=== PATIENT | female | born 1975 | race Caucasian/White ===

== ENCOUNTER 2016-10-04 20:51 | Emergency (ER) | payer SELFPAY ==
[~2016-10-04] VITALS: Ht 165.1 cm; Wt 54.4 kg
[~2016-10-04 20:51] MED LIST: ALBU8.5HRX INH; ALPR1TAB2 PO; CLIN-81 PO; CYCL10TA9 PO; EST1.25T PO; FLT11013 INH; HYDR-2890 PO; OXYC1TAB12 PO; QTP100T PO; TOPI50TA2 PO
--- OUTSIDE RECORDS SUMMARY | 2016-10-04 21:01 | XMS REPORT ---
Author Author Tori Staley Organization [facility] Address [address] [place], [place] [id number] Care Team Providers Care Proposal Consultant Name Role Phone Tori Staley PCP Unavailable Tori Staley PreferredProvider Unavailable Allergies and Adverse Reactions Name Reaction Notes PENICILLINS SULFA (SULFONAMIDES) Bactrim DS Plan of Treatment Planned Activity Comments Planned Date Planned Time Plan/Goal MONA PREP. 08/01/2016 12:00 AM MONA PREP. 08/01/2016 12:00 AM CHLAMYDIA TRACHOMATIS AMP PROBE 08/01/2016 12:00 AM NEISSERIA GONORRHOEAE AMP PROBE 08/01/2016 12:00 AM CBC With Auto Differential 08/17/2016 12:00 AM CMP (comprehensive metabolic panel) 08/17/2016 12:00 AM .Lipid Panel 08/17/2016 12:00 AM CRP 08/17/2016 12:00 AM TSH 08/17/2016 12:00 AM HEPATITIS C QUANT RNA PCR 08/17/2016 12:00 AM LIPASE. 08/17/2016 12:00 AM Yeast culture genital 08/21/2016 12:00 AM Bacterial vaginosis panel (Gardnerella vaginalis, Atopobium vaginae, BV associated Bacteria 2 08/21/2016 12:00 AM Breast ultrasound 09/12/2016 12:00 AM Rib Series, Unilateral 08/27/2012 12:00 AM CBC with Diff, automated 09/23/2013 12:00 AM CMP 09/23/2013 12:00 AM Hepatitis acute panel 09/23/2013 12:[address] of abdomen (with and without contrast) 09/23/2013 12:00 AM Thyroid stimulating hormone (TSH) 03/04/2014 12:00 AM Drug screen ur 03/05/2014 12:00 AM Drug screen ur 03/05/2014 12:00 AM Medications Active Name Start Date Estimated Completion Date SIG Comments amitriptyline 25 mg oral tablet 01/15/2013 take 1 tablet (25 mg) by oral route once daily at bedtime Seroquel oral levothyroxine 50 mcg oral tablet 12/19/2013 take 1 tablet (50 mcg) by oral route once daily Flovent HFA 110 mcg/actuation inhalation HFA aerosol inhaler 04/06/2014 INHALE ONE PUFF BY MOUTH TWICE DAILY Klonopin oral Diflucan 150 mg oral tablet 08/28/2016 take 1 tablet (150 mg) by oral route once ProAir HFA 90 mcg/actuation inhalation HFA aerosol inhaler 09/01/2016 inhale 1 puff (90 mcg) by inhalation route every 6 hours as needed Name Start Date Expiration Date SIG Comments Ultram ER 200 mg oral tablet extended release 24 hr 09/05/2010 09/26/2010 take 1 tablet (200 mg) by oral route once daily for 21 days Prozac PO 20 mg 10/31/2010 02/28/2011 3 tab PO qd erythromycin 250 mg oral tablet 11/04/2010 11/11/2010 take 1 tablet (250 mg) by oral route 2 times per day for 7 days etodolac 400 mg oral tablet 11/07/2010 12/07/2010 take 1 tablet (400 mg) by oral route every 8 hours as needed for 30 days Levaquin 500 mg oral tablet 11/09/2010 11/19/2010 take 1 tablet (500 mg) by oral route once daily for 10 days prednisone 50 mg oral tablet 11/09/2010 11/19/2010 One tablet every day for 10 days. levothyroxine 100 mcg oral tablet 01/09/2011 01/04/2012 take 1 tablet (100 mcg) by oral route once daily for 30 days azithromycin 500 mg oral tablet 02/14/2011 02/20/2011 take 1 tablet (500 mg) by oral route once daily for 6 days Zithromax Z-Zack 250 mg oral tablet 06/22/2011 06/27/2011 take 2 tablets (500 mg) by oral route once daily for 1 day then 1 tablet (250 mg) by oral route once daily for 4 days Keflex 500 mg oral capsule 06/28/2011 07/05/2011 take 1 capsule (500 mg) by oral route every 12 hours for 7 days hydrocodone-acetaminophen 10-325 mg oral tablet 07/18/2011 07/25/2011 take 1 tablet by oral route every 6 hours as needed for pain alprazolam 0.5 mg oral tablet 08/14/2011 08/22/2011 TAKE ONE TABLET BY MOUTH EVERY 4 TO 8 HOURS NEEDED FOR ANXIETY Flexeril 10 mg oral tablet 08/21/2011 10/20/2011 take 1 tablet (10 mg) by oral route 3 times per day for 30 days Imodium A-D 2 mg oral tablet 12/01/2011 12/04/2011 take 2 tablets (4 mg) by oral route after 1st loose stool and 1 tablet (2 mg) after each next bowel movement; do not exceed 16 mg in 24hrs for 3 days promethazine 25 mg oral tablet 12/01/2011 12/04/2011 take 1 tablet by oral route 3 times a day as needed for 3 days Zithromax Z-Zack 250 mg oral tablet 12/04/2011 12/09/2011 take 2 tablets ( 500 mg) by oral route once daily for 1 day then 1 tablet (250 mg) by oral route once daily for 4 days lactulose 10 gram/15 mL (15 mL) oral solution 03/25/2012 03/30/2012 take 30 milliliters (20 gram) by oral route once daily for 5 days amoxicillin 500 mg oral capsule 12/19/2012 12/26/2012 2 capsules BID for 7 days Ventolin HFA 90 mcg/actuation inhalation HFA aerosol inhaler 12/25/20122013 INHALE ONE PUFF EVERY 6 HOURS NEEDED Flovent HFA 110 mcg/actuation inhalation HFA aerosol inhaler 12/25/20122013 inhale 1 puff (110 mcg) by inhalation route 2 times per day for 30 days Zithromax Z-Zack 250 mg oral tablet 01/29/2013 02/03/2013 take 2 tablets ( 500 mg) by oral route once daily for 1 day then 1 tablet (250 mg) by oral route once daily for 4 days tizanidine 2 mg oral capsule 09/04/2013 11/03/2013 take 1 capsule by oral route every 8 hours as needed for 30 days for muscle spasm Premarin 1.25 mg oral tablet 11/10/2013 11/05/2014 take 1 tablet (1.25 mg) by oral route once daily for 30 days Topamax 100 mg oral tablet 12/11/2013 12/06/2014 take 1 tablet (100 mg) by oral route 2 times per day for 30 days ondansetron 8 mg oral tablet,disintegrating 12/11/2013 06/25/2014 dissolve 1 tablet by oral route q 6 hour prn n/v Prozac 40 mg oral capsule 02/17/2014 08/16/2014 take 1 capsule (40 mg) by oral route once daily in the morning for 30 days Flagyl 500 mg oral tablet 08/01/2016 08/08/2016 take 1 tablet (500 mg) by oral route every 12 hours for 7 days Cipro 500 mg oral tablet 08/03/2016 08/10/2016 take 1 tablet (500 mg) by oral route every 12 hours for 7 days clindamycin HCl 300 mg oral capsule 08/17/2016 08/24/2016 take 1 capsule (300 mg) by oral route 2 times per day for 7 days metronidazole 0.75 % vaginal gel 08/29/2016 09/03/2016 insert 1 applicatorful (37.5 mg) by vaginal route once daily at bedtime for 5 days Discontinued Name Start Date Discontinued Date SIG Comments levothyroxine 112 mcg oral tablet 08/19/2010 09/19/2010 take 1 tablet (112 mcg) by oral route once daily Lexapro 10 mg oral tablet 08/29/2010 07/13/2011 take 1 tablet (10 mg) by oral route once daily for 30 days "taking Lexapro" Flovent Diskus 50 mcg/actuation inhalation blister with device 11/09/201011/09 inhale 1 puff (50 mcg) by inhalation route 2 times per day for 30 days promethazine-codeine 6.25-10 mg/5 mL oral syrup 11/09/2010 03/12/2012 take 5 milliliters by oral route every 4-6 hours as needed, not to exceed 30 mL in 24 hours Relpax 40 mg oral tablet 11/22/2010 03/12/2012 take 1 tablet (40 mg) by oral route ; if headache returns, the dose may be repeated after 2 hours, but no more than two doses should be given within a 24-hour period. for 30 days "not taking" Estrace 2 mg oral tablet 01/09/2011 08/27/2012 take 1 tablet (2 mg) by oral route once daily Prozac 20 mg oral capsule 03/13/2011 03/12/2012 take 3 capsules (60 mg) by oral route once daily in the morning for 90 days "not taking" Topamax 100 mg oral tablet 03/30/2011 03/12/2012 take 1 tablet by oral route 2 times a day for 30 days "not taking" Medrol (Zack) 4 mg oral tablets,dose pack 07/13/2011 03/12/2012 take as directed furosemide 20 mg oral tablet 07/13/2011 08/27/2012 take 1 tablet (20 mg) by oral route once daily as needed Xanax 0.5 mg oral tablet 09/05/2011 03/12/2012 take 1 tablet by oral route q 6 - 8 hrs for 30 days alprazolam on list promethazine 25 mg oral tablet 03/14/2012 08/27/2012 take 1 tablet (25 mg) by oral route every 4-6 hours as needed Nucynta 50 mg oral tablet 03/25/2012 08/27/2012 take 1 tablet (50 mg) by oral route every 6 hours as needed trazodone Oral 11/25/2012 Klonopin 0.5 mg oral tablet 11/25/2012 09/04/2013 take 1/2 tablet by mouth daily in am. antipyrine-benzocaine 5.4-1.4 % otic drops 12/19/2012 09/04/2013 instill into left ear by otic route every 2 hours as needed enough drops to fill ear canal Prozac 40 mg oral capsule 01/15/2013 09/04/2013 take 1 capsule by oral route daily amitriptyline 25 mg oral tablet 01/16/2013 11/10/2013 TAKE ONE TABLET BY MOUTH EVERY DAY AT BEDTIME fluoxetine 40 mg oral capsule 01/16/2013 09/04/2013 TAKE ONE CAPSULE BY MOUTH EVERY DAY meloxicam 15 mg oral tablet 05/27/2013 09/04/2013 take 1 tablet (15 mg) by oral route once daily Zofran (as hydrochloride) 4 mg oral tablet 06/11/2013 09/04/2013 1 tab every 4 hours as need prn Medrol (Zack) 4 mg oral tablets,dose pack 06/13/2013 09/04/2013 take as directed hydrocodone-acetaminophen 5-325 mg oral tablet 10/22/2013 take 1 tablet by oral route every 4 hours as needed for pain Xanax 1 mg oral tablet 08/01/2016 take 1 tablet (1 mg) by oral route 3 times per day quetiapine 100 mg oral tablet 10/22/2013 take 1 tablet by oral route once a day (at bedtime) buspirone 10 mg oral tablet 12/11/2013 take 1 tablet (10 mg) by oral route 3 times per day Relpax 40 mg oral tablet 09/04/2013 11/10/2013 take 1 tablet (40 mg) by oral route ; if headache returns, the dose may be repeated after 2 hours, but no more than two doses should be give Levaquin oral 11/10/2013 hydrocodone-acetaminophen 10-325 mg oral tablet 08/01/2016 take 1 tablet by oral route every 4-6 hours as needed for pain fluoxetine 40 mg oral capsule 02/16/2014 08/01/2016 TAKE ONE CAPSULE BY MOUTH EVERY DAY levothyroxine 50 mcg oral tablet 04/26/2014 08/01/2016 TAKE ONE TABLET BY MOUTH ONCE DAILY Bactrim DS 800-160 mg oral tablet 08/17/2016 08/17/2016 take 1 tablet by oral route every 12 hours for 7 days Problem List Description Status Onset Drug Abuse History Active 10/03/2010 Anxiety Active Asthma Active Chronic back pain Active Depression Active Migraine Active Constipation, Slow transit Active 07/30/2013 Abdominal bloating Active 09/29/2013 Ascites Active 09/29/2013 Cirrhosis Active 09/29/2013 Hepatitis Active 09/29/2013 Hepatitis C Active 10/23/2013 Vital Signs Date Time BP-Sys(mm[Hg] BP-Yashira(mm[Hg]) HR(bpm) RR(rpm) Temp WT HT HC BMI BSA BMI Percentile O2 Sat(%) 08/21/2016 10:45:00 AM 110 mmHg 64 mmHg 76 bpm 16 rpm 97.3 F 112 lbs 65.5 in 18.35 kg/m2 1.53 m2 100 % 08/17/2016 2:01:00 PM 116 mmHg 68 mmHg 96 bpm 20 rpm 98.6 F 111.375 lbs 66 in 17.9762 kg/m 1.5338 m 100 % 08/01/2016 10:18:00 AM 134 mmHg 76 mmHg 79 bpm 18 rpm 98.3 F 117.125 lbs 66 in 18.90 kg/m2 1.57 m2 99 % 12/11/2013 9:05:00 AM 114 mmHg 70 mmHg 76 bpm 18 rpm 98.2 F 154 lbs 66 in 24.856 kg/m 1.8036 m 12/08/2013 2:10:00 PM 63 bpm 20 rpm 98.5 F 158.8 lbs 66 in 25.63 kg/m2 1.83 m2 99 % 11/10/2013 10:56:00 AM 128 mmHg 66 mmHg 106 bpm 18 rpm 97.1 F 161.125 lbs 66 in 26.006 kg/m 1.8448 m 98 % 10/22/2013 10:49:00 AM 126 mmHg 72 mmHg 86 bpm 18 rpm 98.7 F 164.25 lbs 66 in 26.51 kg/m2 1.86 m2 100 % 09/23/2013 9:20:00 AM 116 mmHg 80 mmHg 81 bpm 16 rpm 98 F 169 lbs 66 in 27.277 kg/m 1.8894 m 09/04/2013 8:41:00 AM 112 mmHg 60 mmHg 88 bpm 20 rpm 97.7 F 168 lbs 66 in 27.12 kg/m2 1.88 m2 07/25/2013 3:08:00 PM 112 mmHg 80 mmHg 86 bpm 18 rpm 99 F 169 lbs 66 in 27.277 kg/m 1.8894 m 06/13/2013 8:16:00 AM 132 mmHg 66 mmHg 78 bpm 18 rpm 97.2 F 175.25 lbs 66 in 28.29 kg/m2 1.92 m2 96 % 05/27/2013 9:12:00 AM 108 mmHg 76 mmHg 90 bpm 18 rpm 96.9 F 166.6 lbs 66 in 26.8897 kg/m 1.8759 m 100 % 05/15/2013 9:56:00 AM 136 mmHg 90 mmHg 86 bpm 18 rpm 97.7 F 170.25 lbs 66 in 27.48 kg/m2 1.90 m2 98 % 11/25/2012 9:34:00 AM 124 mmHg 68 mmHg 65 bpm 18 rpm 97.1 F 135.375 lbs 66 in 21.8499 kg/m 1.691 m 99 % 08/27/2012 8:25:00 AM 128 mmHg 68 mmHg 68 bpm 18 rpm 97.7 F 128.5 lbs 66 in 20.74 kg/m2 1.65 m2 100 % 05/31/2012 8:35:00 AM 136 mmHg 68 mmHg 68 bpm 18 rpm 97.7 F 141 lbs 66 in 22.7578 kg/m 1.7258 m 03/25/2012 8:16:00 AM 138 mmHg 74 mmHg 74 bpm 18 rpm 99.5 F 131 lbs 03/15/2012 10:36:00 AM 122 mmHg 64 mmHg 68 bpm 18 rpm 97.1 F 126.437 lbs 03/12/2012 9:45:00 AM 120 mmHg 76 mmHg 70 bpm 16 rpm 97.5 F 127 lbs 66 in 20.50 kg/m2 1.64 m2 03/11/2012 2:18:00 PM 136 mmHg 72 mmHg 68 bpm 18 rpm 99.3 F 133.125 lbs 66 in 21.4867 kg/m 1.6769 m 08/21/2011 8:19:00 AM 112 mmHg 70 mmHg 80 bpm 16 rpm 97.7 F 133 lbs 66 in 21.47 kg/m2 1.68 m2 07/18/2011 9:56:00 AM 102 mmHg 68 mmHg 72 bpm 16 rpm 07/18/2011 8:30:00 AM 104 mmHg 60 mmHg 78 bpm 16 rpm 97.1 F 139 lbs 66 in 22.43 kg/m2 1.71 m2 07/13/2011 8:12:00 AM 120 mmHg 72 mmHg 76 bpm 18 rpm 98.2 F 141 lbs 66 in 22.7578 kg/m 1.7258 m 06/28/2011 8:53:00 AM 135 mmHg 68 mmHg 66 bpm 18 rpm 96.5 F 137.375 lbs 66 in 22.17 kg/m2 1.70 m2 06/22/2011 8:33:00 AM 110 mmHg 62 mmHg 70 bpm 18 rpm 96.2 F 141 lbs 66 in 22.7578 kg/m 1.7258 m 100 % 06/05/2011 8:47:00 AM 100 mmHg 60 mmHg 77 bpm 97.3 F 136.375 lbs 99 % 05/18/2011 9:14:00 AM 122 mmHg 64 mmHg 72 bpm 05/18/2011 8:31:00 AM 102 mmHg 54 mmHg 78 bpm 18 rpm 97.4 F 136 lbs 66 in 21.95 kg/m2 1.69 m2 04/10/2011 8:36:00 AM 125 mmHg 82 mmHg 77 bpm 97.6 F 99 % 03/27/2011 8:48:00 AM 130 mmHg 88 mmHg 73 bpm 96.5 F 142.375 lbs 98 % 03/13/2011 8:56:00 AM 64 bpm 97.3 F 138 lbs 98 % 03/13/2011 8:03:00 AM 114 mmHg 70 mmHg 78 bpm 16 rpm 97.4 F 138 lbs 66 in 22.2736 kg/m 1.7073 m 02/27/2011 8:18:00 AM 102 mmHg 68 mmHg 80 bpm 20 rpm 87.6 F 132 lbs 02/09/2011 8:42:00 AM 120 mmHg 81 mmHg 76 bpm 20 rpm 99.1 F 136 lbs 66 in 21.9507 kg/m 1.6949 m 01/24/2011 10:26:00 AM 102 mmHg 78 mmHg 68 bpm 96.9 F 132.375 lbs 98 % 01/12/2011 8:06:00 AM 120 mmHg 85 mmHg 80 bpm 97.7 F 134 lbs 66 in 21.6279 kg/m 1.6824 m 11/09/2010 10:51:00 AM 100 mmHg 70 mmHg 81 bpm 95.8 F 130 lbs 97 % 10/24/2010 11:07:00 AM 110 mmHg 74 mmHg 80 bpm 16 rpm 97.6 F 139.5 lbs 09/19/2010 8:55:00 AM 105 mmHg 60 mmHg 16 bpm 78 rpm 97.5 F 137 lbs 66 in 22.11 kg/m2 1.70 m2 07/04/2010 9:01:00 AM 118 mmHg 82 mmHg 92 bpm 22 rpm 98 F 141.25 lbs 98 % Social History Name Description Comments Hx of substance use meth Cocaine Recent Incarceration 3 yrs Tobacco Current every day smoker History of Procedures Date Ordered Description Order Status 10/10/2010 12:00 AM RAPID Urine drug screen Reviewed 10/18/2010 12:00 AM RAPID Urine drug screen Reviewed 10/31/2010 12:00 AM RAPID Urine drug screen Reviewed 11/09/2010 12:00 AM CHEST X-RAY 2VW FRONTAL&LATL Reviewed 11/14/2010 12:00 AM RAPID Urine drug screen Reviewed 11/28/2010 12:00 AM RAPID - Urine drug screen Reviewed 12/12/2010 12:00 AM Drug Screen Reviewed 12/15/2010 12:00 AM OFFICE/OUTPATIENT VISIT EST Reviewed 12/26/2010 12:00 AM RAPID Urine drug screen Reviewed 01/16/2011 12:00 AM URINALYSIS AUTO W/SCOPE Reviewed 01/16/2011 12:00 AM RAPID Urine drug screen Reviewed 01/24/2011 12:00 AM RAPID Urine drug screen Reviewed 01/24/2011 12:00 AM URINALYSIS NONAUTO W/SCOPE Reviewed 01/24/2011 12:00 AM Toradol 60 Mg,[facility] [place] [id number] [place] Reviewed 01/24/2011 12:00 AM THER/PROPH/DIAG INJ SC/IM Reviewed 02/14/2011 12:00 AM RAPID Urine drug screen Reviewed 02/27/2011 12:00 AM Urine drug screen Reviewed 03/13/2011 12:00 AM Urine drug screen Reviewed 04/10/2011 12:00 AM RAPID Urine drug screen Reviewed 04/24/2011 12:00 AM RAPID Urine drug screen Reviewed 04/24/2011 12:00 AM THER/PROPH/DIAG INJ SC/IM Reviewed 04/24/2011 12:00 AM Toradol 15 Mg,[facility] [place] [id number] Reviewed 04/24/2011 12:00 AM Toradol 15 Mg,[facility] [place] [facility]#[address]-81 ([place])-- gave 30 mg=1 ml Reviewed 05/08/2011 12:00 AM RAPID Urine drug screen Reviewed 05/18/2011 12:00 AM INJECT TRIGGER POINTS 3/> Reviewed 05/18/2011 12:00 AM HOT OR COLD PACKS THERAPY Reviewed 05/22/2011 12:00 AM RAPID Urine drug screen Reviewed 06/19/2011 12:00 AM OFFICE/OUTPATIENT VISIT EST Reviewed 06/22/2011 12:00 AM THER/PROPH/DIAG INJ SC/IM Reviewed 06/22/2011 12:00 AM Decadron 1 mg [facility]#[id number] ([place]) Reviewed 06/22/2011 12:00 AM Depo-Medrol 80 mg [facility]#[id number] Reviewed 07/18/2011 12:00 AM INJECT TRIGGER POINTS 3/> Reviewed 07/18/2011 12:00 AM HOT OR COLD PACKS THERAPY Reviewed 08/01/2016 11:07 AM URINALYSIS AUTO W/O SCOPE Reviewed 08/01/2016 12:00 AM SMEAR WET MOUNT SALINE/INK Reviewed 08/01/2016 12:00 AM CULTURE SCREEN ONLY Reviewed 08/01/2016 12:00 AM URINE CULTURE/COLONY COUNT Reviewed 08/01/2016 12:00 AM HIV-1 AG W/HIV-1 & HIV-2 AB Reviewed 08/01/2016 12:00 AM HEP B SURFACE ANTIBODY Reviewed 08/01/2016 12:00 AM SYPHILIS TEST NON-TREP QUANT Reviewed 08/01/2016 12:00 AM Rocephin 250 Mg Injection Reviewed 08/17/2016 12:00 AM URINALYSIS AUTO W/SCOPE Reviewed 08/17/2016 12:00 AM RADEX ABDOMEN COMPL W/DCBTS&/ERC VIEWS Reviewed 08/21/2016 12:00 AM CYTOPATH C/V THIN LAYER Reviewed 08/21/2016 12:00 AM MAMMOGRAPHY SCREENING, DIGITAL Reviewed 03/11/2012 12:00 AM THER/PROPH/DIAG INJ SC/IM Reviewed 03/11/2012 12:00 AM Decadron, Per 1 Mg [facility]# [address]-64 Reviewed 03/11/2012 12:00 AM Depo-Medrol, Per 80 Mg [facility]#9398-3191-28 Reviewed 03/11/2012 12:00 AM Rocephin 500 Mg [facility]#7888-6294-87 Reviewed 03/15/2012 12:00 AM COMPLETE CBC W/AUTO DIFF WBC Reviewed 03/15/2012 12:00 AM COMPREHEN METABOLIC PANEL Reviewed 03/15/2012 12:00 AM ASSAY OF LIPASE Reviewed 03/15/2012 12:00 AM X-RAY EXAM OF ABDOMEN Reviewed 05/31/2012 12:00 AM THER/PROPH/DIAG INJ SC/IM Reviewed 05/31/2012 12:00 AM Decadron, Per 1 Mg [facility]# [address]-74 Reviewed 05/31/2012 12:00 AM Depo-Medrol, Per 80 Mg [facility]#8364-7083-03 Reviewed 08/27/2012 12:00 AM CHEST X-RAY 2VW FRONTAL&LATL Reviewed 11/25/2012 12:00 AM Rapid Urine drug screen Reviewed 05/15/2013 12:00 AM THER/PROPH/DIAG INJ SC/IM Reviewed 05/15/2013 12:00 AM Decadron, Per 1 Mg [facility]# [address]-49 Reviewed 05/15/2013 12:00 AM Depo-Medrol, Per 80 Mg [facility]#7261-7518-85 Reviewed 05/15/2013 12:00 AM MRI LUMBAR SPINE W/DYE Reviewed 10/22/2013 12:00 AM ASSAY THYROID STIM HORMONE Reviewed 11/10/2013 12:00 AM LIPID PANEL Reviewed 11/10/2013 12:00 AM HIV-1 AG W/HIV-1 & HIV-2 AB Reviewed 11/10/2013 12:00 AM MAMMOGRAM BOTH BREASTS Reviewed 12/11/2013 12:00 AM THER/PROPH/DIAG INJ SC/IM Reviewed 12/11/2013 12:00 AM Toradol 15 Mg [facility]#1091-5802-58 Reviewed 03/04/2014 12:00 AM COMPLETE CBC W/AUTO DIFF WBC Reviewed 03/04/2014 12:00 AM COMPREHEN METABOLIC PANEL Reviewed 03/04/2014 12:00 AM LIPID PANEL Reviewed 07/12/2010 12:00 AM RAPID Urine drug screen Reviewed 07/18/2010 12:00 AM RAPID Urine drug screen Reviewed 07/26/2010 12:00 AM RAPID Urine drug screen Reviewed 08/01/2010 12:00 AM RAPID Urine drug screen Reviewed 08/08/2010 12:00 AM RAPID Urine drug screen Reviewed 08/16/2010 12:00 AM RAPID Urine drug screen Reviewed 08/29/2010 12:00 AM Rapid Urine Drug Screen Reviewed 09/05/2010 12:00 AM RAPID Urine drug screen Reviewed 09/12/2010 12:00 AM RAPID Urine drug screen Reviewed 09/19/2010 12:00 AM RAPID Urine drug screen Reviewed 09/19/2010 12:00 AM Toradol 15 Mg,[facility] [place] [facility]#[address]-66 ([place])-- gave 30 mg=1 ml Reviewed 09/27/2010 12:00 AM RAPID Urine drug screen Reviewed 10/03/2010 12:00 AM RAPID Urine drug screen Reviewed Results Summary Date and Description Results 07/12/2010 8:57 AM Cannabinoids (THC) NEGATIVE Phencyclidine (PCP) NEGATIVE Cocaine NEGATIVE Methamphetamine NEGATIVE Opiates NEGATIVE Amphetamine NEGATIVE Benzodiazepines NON-NEGATIVE Tricyclic Antidepres NEGATIVE Methadone NEGATIVE Barbiturates NEGATIVE Oxycodone NEGATIVE Propoxyphene (PPX) NEGATIVE 07/18/2010 8:58 AM Cannabinoids (THC) NEGATIVE Phencyclidine (PCP) NEGATIVE Cocaine NEGATIVE Methamphetamine NEGATIVE Opiates NEGATIVE Amphetamine NEGATIVE Benzodiazepines NON-NEGATIVE Tricyclic Antidepres NON-NEGATIVE Methadone NEGATIVE Barbiturates NEGATIVE Oxycodone NEGATIVE Propoxyphene (PPX) NEGATIVE 07/26/2010 9:56 AM Cannabinoids (THC) NEGATIVE Phencyclidine (PCP) NEGATIVE Cocaine NEGATIVE Methamphetamine NEGATIVE Opiates NON-NEGATIVE Amphetamine NEGATIVE Benzodiazepines NON-NEGATIVE Tricyclic Antidepres NEGATIVE Methadone NEGATIVE Barbiturates NEGATIVE Oxycodone NEGATIVE Propoxyphene (PPX) NEGATIVE 08/01/2010 10:50 AM Cannabinoids (THC) NEGATIVE Phencyclidine (PCP) NEGATIVE Cocaine NEGATIVE Methamphetamine NEGATIVE Opiates NEGATIVE Amphetamine NEGATIVE Benzodiazepines NON-NEGATIVE Tricyclic Antidepres NEGATIVE Methadone NEGATIVE Barbiturates NEGATIVE Oxycodone NEGATIVE Propoxyphene (PPX) NEGATIVE 08/08/2010 9:17 AM Cannabinoids (THC) NEGATIVE Phencyclidine (PCP) NEGATIVE Cocaine NEGATIVE Methamphetamine NEGATIVE Opiates NEGATIVE Amphetamine NEGATIVE Benzodiazepines NON-NEGATIVE Tricyclic Antidepres NEGATIVE Methadone NEGATIVE Barbiturates NEGATIVE Oxycodone NEGATIVE Propoxyphene (PPX) NEGATIVE 08/16/2010 9:05 AM Cannabinoids (THC) NEGATIVE Phencyclidine (PCP) NEGATIVE Cocaine NEGATIVE Methamphetamine NEGATIVE Opiates NEGATIVE Amphetamine NEGATIVE Benzodiazepines NON-NEGATIVE Tricyclic Antidepres NEGATIVE Methadone NEGATIVE Barbiturates NEGATIVE Oxycodone NEGATIVE Propoxyphene (PPX) NEGATIVE 08/22/2010 9:11 AM Cannabinoids (THC) NEGATIVE Phencyclidine (PCP) NEGATIVE Cocaine NEGATIVE Methamphetamine NEGATIVE Opiates NEGATIVE Amphetamine NEGATIVE Benzodiazepines NON-NEGATIVE Tricyclic Antidepres NON-NEGATIVE Methadone NEGATIVE Barbiturates NEGATIVE Oxycodone NEGATIVE Propoxyphene (PPX) NEGATIVE 08/29/2010 9:16 AM Cannabinoids (THC) NEGATIVE Phencyclidine (PCP) NEGATIVE Cocaine NEGATIVE Methamphetamine NEGATIVE Opiates NEGATIVE Amphetamine NEGATIVE Benzodiazepines NON-NEGATIVE Tricyclic Antidepres NEGATIVE Methadone NEGATIVE Barbiturates NEGATIVE Oxycodone NEGATIVE Propoxyphene (PPX) NEGATIVE 09/05/2010 9:42 AM Cannabinoids (THC) NEGATIVE Phencyclidine (PCP) NEGATIVE Cocaine NEGATIVE Methamphetamine NEGATIVE Opiates NEGATIVE Amphetamine NEGATIVE Benzodiazepines NON-NEGATIVE Tricyclic Antidepres NEGATIVE Methadone NEGATIVE Barbiturates NEGATIVE Oxycodone NEGATIVE Propoxyphene (PPX) NEGATIVE 09/19/2010 9:50 AM Cannabinoids (THC) NEGATIVE Phencyclidine (PCP) NEGATIVE Cocaine NEGATIVE Methamphetamine NEGATIVE Opiates NEGATIVE Amphetamine NEGATIVE Benzodiazepines NON-NEGATIVE Tricyclic Antidepres NEGATIVE Methadone NEGATIVE Barbiturates NEGATIVE Oxycodone NEGATIVE Propoxyphene (PPX) NEGATIVE 09/27/2010 8:57 AM Cannabinoids (THC) NEGATIVE Phencyclidine (PCP) NEGATIVE Cocaine NEGATIVE Methamphetamine NEGATIVE Opiates NON-NEGATIVE Amphetamine NEGATIVE Benzodiazepines NON-NEGATIVE Tricyclic Antidepres NEGATIVE Methadone NEGATIVE Barbiturates NEGATIVE Oxycodone NEGATIVE Propoxyphene (PPX) NEGATIVE 10/10/2010 8:33 AM Cannabinoids (THC) NEGATIVE Phencyclidine (PCP) NEGATIVE Cocaine NEGATIVE Methamphetamine NEGATIVE Opiates NON-NEGATIVE Amphetamine NEGATIVE Benzodiazepines NON-NEGATIVE Tricyclic Antidepres NEGATIVE Methadone NEGATIVE Barbiturates NEGATIVE Oxycodone NEGATIVE Propoxyphene (PPX) NEGATIVE 10/18/2010 9:10 AM Cannabinoids (THC) NEGATIVE Phencyclidine (PCP) NEGATIVE Cocaine NEGATIVE Methamphetamine NEGATIVE Opiates NON-NEGATIVE Amphetamine NEGATIVE Benzodiazepines NON-NEGATIVE Tricyclic Antidepres NEGATIVE Methadone NEGATIVE Barbiturates NEGATIVE Oxycodone NEGATIVE Propoxyphene (PPX) NEGATIVE 10/31/2010 9:39 AM Cannabinoids (THC) NEGATIVE Phencyclidine (PCP) NEGATIVE Cocaine NEGATIVE Methamphetamine NON-NEGATIVE Opiates NON-NEGATIVE Amphetamine NEGATIVE Benzodiazepines NON-NEGATIVE Tricyclic Antidepres NEGATIVE Methadone NEGATIVE Barbiturates NEGATIVE Oxycodone NEGATIVE Propoxyphene (PPX) NEGATIVE 11/14/2010 11:22 AM Cannabinoids (THC) NEGATIVE Phencyclidine (PCP) NEGATIVE Cocaine NEGATIVE Methamphetamine NEGATIVE Opiates NON-NEGATIVE Amphetamine NEGATIVE Benzodiazepines NON-NEGATIVE Tricyclic Antidepres NEGATIVE Methadone NEGATIVE Barbiturates NEGATIVE Oxycodone NEGATIVE Propoxyphene (PPX) NEGATIVE 11/28/2010 8:31 AM Cannabinoids (THC) NEGATIVE Phencyclidine (PCP) NEGATIVE Cocaine NEGATIVE Methamphetamine NEGATIVE Opiates NON-NEGATIVE Amphetamine NEGATIVE Benzodiazepines NON-NEGATIVE Tricyclic Antidepres NEGATIVE Methadone NEGATIVE Barbiturates NEGATIVE Oxycodone NEGATIVE Propoxyphene (PPX) NEGATIVE 12/12/2010 8:45 AM Cannabinoids (THC) NEGATIVE Phencyclidine (PCP) NEGATIVE Cocaine NEGATIVE Methamphetamine NEGATIVE Opiates NON-NEGATIVE Amphetamine NEGATIVE Benzodiazepines NON-NEGATIVE Tricyclic Antidepres NEGATIVE Methadone NEGATIVE Barbiturates NEGATIVE Oxycodone NEGATIVE Propoxyphene (PPX) NEGATIVE 12/27/2010 8:51 AM Cannabinoids (THC) NEGATIVE Phencyclidine (PCP) NEGATIVE Cocaine NEGATIVE Methamphetamine NEGATIVE Opiates NON-NEGATIVE Amphetamine NEGATIVE Benzodiazepines NON-NEGATIVE Tricyclic Antidepres NEGATIVE Methadone NEGATIVE Barbiturates NEGATIVE Oxycodone NON-NEGATIVE Propoxyphene (PPX) NEGATIVE 01/16/2011 8:33 AM Cannabinoids (THC) NEGATIVE Phencyclidine (PCP) NEGATIVE Cocaine NEGATIVE Methamphetamine NEGATIVE Opiates NON-NEGATIVE Amphetamine NEGATIVE Benzodiazepines NON-NEGATIVE Tricyclic Antidepres NEGATIVE Methadone NEGATIVE Barbiturates NEGATIVE Oxycodone NEGATIVE Propoxyphene (PPX) NEGATIVE COLOR YELLOW APPEARANCE CLEAR SPEC GRAV 1.015 pH 6.0 PROTEIN NEGATIVE GLUCOSE NEGATIVE KETONE NEGATIVE BILIRUBIN NEGATIVE BLOOD NEGATIVE NITRITE NEGATIVE LEUK SCREEN NEGATIVE WBC/HPF NEGATIVE RBC/HPF NEGATIVE CASTS/LPF NEGATIVE CRYSTALS NEGATIVE MUCOUS THRDS NEGATIVE BACTERIA FEW EPITH CELLS 2++ SQUAMOUS TRICHOMONAS NEGATIVE YEAST FEW CULT SET UP? NO 01/24/2011 3:05 PM COLOR YELLOW APPEARANCE CLEAR SPEC GRAV 1.020 pH 6.0 PROTEIN NEGATIVE GLUCOSE NEGATIVE KETONE NEGATIVE BILIRUBIN NEGATIVE BLOOD NEGATIVE NITRITE NEGATIVE LEUK SCREEN NEGATIVE WBC/HPF NEGATIVE RBC/HPF RARE CASTS/LPF NEGATIVE CRYSTALS NEGATIVE MUCOUS THRDS NEGATIVE BACTERIA NEGATIVE EPITH CELLS FEW SQUAMOUS TRICHOMONAS NEGATIVE YEAST NEGATIVE CULT SET UP? NO Cannabinoids (THC) NEGATIVE Phencyclidine (PCP) NEGATIVE Cocaine NEGATIVE Methamphetamine NEGATIVE Opiates NON-NEGATIVE Amphetamine NEGATIVE Benzodiazepines NON-NEGATIVE Tricyclic Antidepres NEGATIVE Methadone NEGATIVE Barbiturates NEGATIVE Oxycodone NEGATIVE Propoxyphene (PPX) NEGATIVE 02/14/2011 8:21 AM Cannabinoids (THC) NEGATIVE Phencyclidine (PCP) NEGATIVE Cocaine NEGATIVE Methamphetamine NON-NEGATIVE Opiates NON-NEGATIVE Amphetamine NEGATIVE Benzodiazepines NON-NEGATIVE Tricyclic Antidepres NON-NEGATIVE Methadone NEGATIVE Barbiturates NEGATIVE Oxycodone NEGATIVE Propoxyphene (PPX) NEGATIVE 02/27/2011 11:25 AM Cannabinoids (THC) NEGATIVE Phencyclidine (PCP) NEGATIVE Cocaine NEGATIVE Methamphetamine NEGATIVE Opiates NON-NEGATIVE Amphetamine NEGATIVE Benzodiazepines NON-NEGATIVE Tricyclic Antidepres NEGATIVE Methadone NEGATIVE Barbiturates NEGATIVE Oxycodone NEGATIVE Propoxyphene (PPX) NEGATIVE 03/13/2011 9:50 AM Cannabinoids (THC) NEGATIVE Phencyclidine (PCP) NEGATIVE Cocaine NEGATIVE Methamphetamine NEGATIVE Opiates NON-NEGATIVE Amphetamine NEGATIVE Benzodiazepines NON-NEGATIVE Tricyclic Antidepres NEGATIVE Methadone NEGATIVE Barbiturates NEGATIVE Oxycodone NEGATIVE Propoxyphene (PPX) NEGATIVE 04/10/2011 8:56 AM Cannabinoids (THC) NEGATIVE Phencyclidine (PCP) NEGATIVE Cocaine NEGATIVE Methamphetamine NEGATIVE Opiates NON-NEGATIVE Amphetamine NEGATIVE Benzodiazepines NON-NEGATIVE Tricyclic Antidepres NEGATIVE Methadone NEGATIVE Barbiturates NEGATIVE Oxycodone NEGATIVE Propoxyphene (PPX) NEGATIVE Cannabinoids (THC) NEGATIVE Phencyclidine (PCP) NEGATIVE Cocaine NEGATIVE Methamphetamine NEGATIVE Opiates NON-NEGATIVE Amphetamine NEGATIVE Benzodiazepines NON-NEGATIVE Tricyclic Antidepres NEGATIVE Methadone NEGATIVE Barbiturates NEGATIVE Oxycodone NEGATIVE Propoxyphene (PPX) NEGATIVE 04/24/2011 8:57 AM Cannabinoids (THC) NEGATIVE Phencyclidine (PCP) NEGATIVE Cocaine NEGATIVE Methamphetamine NEGATIVE Opiates NON-NEGATIVE Amphetamine NEGATIVE Benzodiazepines NON-NEGATIVE Tricyclic Antidepres NEGATIVE Methadone NEGATIVE Barbiturates NEGATIVE Oxycodone NEGATIVE Propoxyphene (PPX) NEGATIVE 05/08/2011 9:43 AM Cannabinoids (THC) NEGATIVE Phencyclidine (PCP) NEGATIVE Cocaine NEGATIVE Methamphetamine NEGATIVE Opiates NON-NEGATIVE Amphetamine NEGATIVE Benzodiazepines NON-NEGATIVE Tricyclic Antidepres NEGATIVE Methadone NEGATIVE Barbiturates NEGATIVE Oxycodone NEGATIVE Propoxyphene (PPX) NEGATIVE 05/22/2011 8:33 AM Cannabinoids (THC) NEGATIVE Phencyclidine (PCP) NEGATIVE Cocaine NEGATIVE Methamphetamine NEGATIVE Opiates NON-NEGATIVE Amphetamine NEGATIVE Benzodiazepines NON-NEGATIVE Tricyclic Antidepres NEGATIVE Methadone NEGATIVE Barbiturates NEGATIVE Oxycodone NEGATIVE Propoxyphene (PPX) NEGATIVE 03/15/2012 11:35 AM WBC 6.2 RBC 5.18 HGB 16.50 g/dLHCT 48.10 %MCV 93.0 fLMCH 31.90 pgMCHC 34.30 g/dLRDW SD 43 RDW CV 12.40 %MPV 11.90 fLPLT 236 NRBC# 0.00 NRBC% 0.0 %NEUT 37.60 %%LYMP 50.0 %%MONO 11.0 %%EOS 0.30 %%BASO 1.10 %#NEUT 2.32 #LYMP 3.09 #MONO 0.68 #EOS 0.02 #BASO 0.07 MANUAL DIFF NOT IND GLUCOSE 113.0 mg/dLSODIUM 144.0 mmol/LPOTASSIUM 3.80 mmol/LCHLORIDE 99.0 mmol/LCO2 29.0 mmol/LBUN 14.0 mg/dLCREATININE 0.90 mg/dLSGOT/AST 21.0 IU/LSGPT/ALT 22.0 IU/ LALK PHOS 79.0 IU/LTOTAL PROTEIN 8.40 g/dLALBUMIN 5.0 g/dLTOTAL BILI 0.90 mg/ dLCALCIUM 10.80 mg/dLAGE 36 GFR NonAA 70 GFR AA 85 eGFR 60 eGFR AA* 60 LIPASE 37.0 U/L 11/25/2012 10:30 AM Cannabinoids (THC) NEGATIVE Phencyclidine (PCP) NEGATIVE Cocaine NON-NEGATIVE Methamphetamine NEGATIVE Opiates NEGATIVE Amphetamine NEGATIVE Benzodiazepines NEGATIVE Tricyclic Antidepres NEGATIVE Methadone NEGATIVE Barbiturates NEGATIVE Oxycodone NEGATIVE Propoxyphene (PPX) NEGATIVE 10/22/2013 11:38 AM Hepatitis C Quantitation HCV Not Detected HCV log10 PATIENT SERVICES CLERK 11/17/2013 8:20 AM TRIGLYCERIDES 207.0 mg/dLCHOLESTEROL 249.0 mg/dLHDL 43.0 mg/ dLTOT CHOL/HDL 5.8 LDL (CALC) 165.0 mg/dLHIV AG/AB COMBO 0.07 03/05/2014 8:54 AM WBC 5.9 RBC 4.33 HGB 13.60 g/dLHCT 41.30 %MCV 95.0 fLMCH 31.40 pgMCHC 32.90 g/dLRDW SD 46 RDW CV 13.10 %MPV 11.50 fLPLT 232 NRBC# 0.00 NRBC% 0.0 %NEUT 43.60 %%LYMP 47.60 %%MONO 5.90 %%EOS 1.50 %%BASO 1.40 %#NEUT 2.58 #LYMP 2.82 #MONO 0.35 #EOS 0.09 #BASO 0.08 MANUAL DIFF NOT IND TSH 2.320 uIU/mLGLUCOSE 100.0 mg/dLSODIUM 140.0 mmol/LPOTASSIUM 3.70 mmol/LCHLORIDE 113.0 mmol/LCO2 17.0 mmol/LBUN 13.0 mg/dLCREATININE 0.70 mg/dLSGOT/AST 17.0 IU/LSGPT/ ALT 14.0 IU/LALK PHOS 55.0 IU/LTOTAL PROTEIN 7.50 g/dLALBUMIN 4.60 g/dLTOTAL BILI 0.80 mg/dLCALCIUM 9.60 mg/dLAGE 38 GFR NonAA 93 GFR AA 113 eGFR >60 mL/min/ 1.73 m2eGFR AA* >60 TRIGLYCERIDES 139.0 mg/dLCHOLESTEROL 220.0 mg/dLHDL 61.0 mg/ dLTOT CHOL/HDL 3.6 LDL (CALC) 131.0 mg/dL 08/01/2016 11:01 AM WET PREP NO TRICH SEEN CLUE CELLS PRESENT 08/01/2016 11:07 AM Clarity Ur clear Color Ur lt yellow Glucose Ur-sCnc neg Bilirub Ur Ql Strip neg Ketones Ur Ql Strip neg Sp Gr Ur Qn >=1.030 Hgb Ur Ql Strip Trace pH Ur-LsCnc 6.0 Prot Ur Ql Strip 30mg/dL Urobilinogen Ur-mCnc neg Nitrite Ur Ql Strip small 08/01/2016 11:15 AM HIV AG/AB COMBO 0.08 Hep B Surface Ab, Qual Non Reactive Index ValueRapid Plasma Reagin,Quant Non Reactive 08/21/2016 12:23 PM COLOR YELLOW APPEARANCE CLEAR SPEC GRAV <=1.005 pH 6.0 PROTEIN NEGATIVE GLUCOSE NEGATIVE mg/dLKETONE NEGATIVE BILIRUBIN NEGATIVE BLOOD TRACE-INTACT NITRITE NEGATIVE LEUK SCREEN NEGATIVE MICRO INDICATED? SEE BELOW WBC/HPF NEGATIVE RBC/HPF RARE CASTS/LPF NEGATIVE /LPFCRYSTALS NEGATIVE MUCOUS THRDS FEW BACTERIA FEW EPITH CELLS FEW SQUAMOUS /HPFTRICHOMONAS NEGATIVE YEAST NEGATIVE CULT SET UP? NO History Of Immunizations Not available. History of Past Illness Name Date of Onset Comments Drug Abuse History 10/03/2010 Migraine Depression Anxiety Chronic back pain Asthma Constipation, Slow transit 07/30/2013 Abdominal bloating 09/29/2013 Ascites 09/29/2013 Cirrhosis 09/29/2013 Hepatitis 09/29/2013 Hepatitis C 10/23/2013 Drug Abuse History Jul 12 2010 8:37AM Drug Abuse History Jul 18 2010 8:23AM Anxiety state; other Jul 04 2010 9:04AM Drug Abuse History Jul 26 2010 8:55AM Drug Abuse History Aug 01 2010 8:33AM Drug Abuse History Aug 08 2010 8:43AM Drug Abuse History Aug 16 2010 8:37AM Drug Abuse History Aug 29 2010 8:32AM Drug Abuse History Sep 05 2010 8:09AM Drug Abuse History Sep 12 2010 8:37AM Drug Abuse History Sep 19 2010 8:07AM Headache: tension v. Migraine Sep 19 2010 8:56AM Muscle Spasm: Upper and lower back Sep 19 2010 8:56AM SI joint pain --bilateral Sep 19 2010 8:56AM Headache: tension v. Migraine Sep 27 2010 8:02AM Muscle Spasm: Upper and lower back Sep 27 2010 8:02AM SI joint pain --bilateral Sep 27 2010 8:02AM Drug Abuse History Sep 27 2010 8:35AM Drug Abuse History Oct 03 2010 8:04AM Drug Abuse History Oct 10 2010 8:18AM Drug Abuse History Oct 18 2010 8:13AM Headache: tension v. Migraine Oct 24 2010 11:07AM Muscle Spasm: Upper and lower back Oct 24 2010 11:07AM Drug Abuse History Oct 31 2010 8:28AM Bronchitis Nov 09 2010 10:50AM Drug Abuse History Nov 14 2010 8:25AM Headache: tension v. Migraine Nov 22 2010 8:51AM Muscle Spasm: Upper and lower back Nov 22 2010 8:51AM Drug Abuse History Nov 28 2010 7:52AM Chronic pain syndrome Dec 15 2010 9:33AM Muscle Spasm Dec 15 2010 9:33AM Drug Abuse History Dec 26 2010 7:44AM Headache: tension v. Migraine Jan 12 2011 8:05AM Muscle Spasm: Upper and lower back Jan 12 2011 8:05AM Dysuria Jan 16 2011 8:09AM Drug Abuse History Jan 16 2011 8:09AM Dysuria Jan 24 2011 10:27AM Drug Abuse History Jan 24 2011 10:27AM Headache: tension v. Migraine Feb 09 2011 8:45AM Muscle Spasm: Upper and lower back Feb 09 2011 8:45AM Drug Abuse History Feb 14 2011 7:50AM Drug Abuse History Feb 27 2011 8:55AM Headache: tension v. Migraine Mar 13 2011 8:06AM Muscle Spasm: Upper and lower back Mar 13 2011 8:06AM Drug Abuse History Apr 10 2011 8:38AM Drug Abuse History Apr 24 2011 8:48AM Headache: tension v. 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 Migraine Aug 21 2011 8:23AM Muscle Spasm: Upper and lower back Aug 21 2011 8:23AM Abdominal Pain Mar 13 2011 8:59AM Drug Abuse History Mar 13 2011 8:59AM Anxiety Disorder Mar 13 2011 8:59AM Upper Respiratory Infections Mar 11 2012 2:20PM Bronchitis, Acute Mar 11 2012 2:20PM Abdominal Pain Mar 15 2012 10:37AM Sprain/strain of left shoulder Mar 12 2012 9:47AM Constipation Mar 25 2012 8:18AM Left Pain in joint; shoulder region Mar 25 2012 8:18AM Allergic Rhinitis May 31 2012 8:37AM Right rib pain Aug 27 2012 8:27AM Drug Abuse Nov 25 2012 9:36AM Anxiety Disorder Nov 25 2012 9:36AM Insomnia Nov 25 2012 9:36AM Back Pain May 15 2013 10:02AM Carpal Tunnel Syndrome May 15 2013 10:02AM Back Pain May 27 2013 9:14AM Upper Respiratory Infections Jun 13 2013 8:19AM Constipation, Slow transit Jul 25 2013 2:52PM Headache, tension type, chronic Sep 04 2013 8:49AM Headache, migraine Sep 04 2013 8:49AM Abdominal bloating Sep 23 2013 9:25AM Hypothyroidism, Acquired Oct 22 2013 10:50AM Insect bites Oct 22 2013 10:50AM Hepatitis C Oct 22 2013 10:50AM High risk sexual behavior Nov 10 2013 10:58AM Screening, ischemic heart disease Nov 10 2013 10:58AM Cystic breast Nov 10 2013 10:58AM Hepatitis C Nov 10 2013 10:58AM Drug Abuse History Nov 10 2013 10:58AM Anxiety Nov 10 2013 10:58AM Asthma Nov 10 2013 10:58AM Depression Nov 10 2013 10:58AM Abnormal mammogram Dec 08 2013 2:11PM Worried well Dec 08 2013 2:11PM Headache, tension type, chronic Dec 11 2013 9:10AM Headache, migraine Dec 11 2013 9:10AM Headache Dec 11 2013 9:55AM Hypercholesterolemia Mar 04 2014 1:07PM Hypothyroidism, Acquired Mar 04 2014 1:07PM History of drug abuse Mar 05 2014 1:22PM Vaginal discharge Aug 01 2016 10:20AM Pelvic pain in female Aug 01 2016 10:20AM Drug use Aug 01 2016 10:20AM Non-intractable vomiting with nausea, unspecified vomiting type Aug 17 2016 2 :03PM Diarrhea, unspecified type Aug 17 2016 2:03PM Sore throat Aug 17 2016 2:03PM Weight loss Aug 17 2016 2:03PM Drug abuse Aug 17 2016 2:03PM Screening for ischemic heart disease Aug 17 2016 2:03PM History of positive hepatitis C Aug 17 2016 2:03PM Lower abdominal pain Aug 17 2016 2:03PM Encounter for screening mammogram for breast cancer Aug 21 2016 10:47AM Encounter for annual routine gynecological examination Aug 21 2016 10:47AM Foreign body in vulva and vagina, initial encounter Aug 21 2016 10:47AM Abnormal mammogram of left breast Sep 12 2016 1:27PM Payers Insurance Name Company Name Plan Name Plan Number Policy Number Policy Group Number Start Date BCBS [employer] [place] [id number] N/A Aetna Aetna INVALID [id number] N/A Aetna Aetna [id number] Thursday, 2013 History of Encounters Visit Date Visit Type Provider 08/21/2016 Office visit Tori Staley APRN 08/17/2016 Office visit Tori Staley APRN 08/01/2016 Office visit Tori Staley APRN 12/11/2013 Office visit Lucinda Marquez MD 12/08/2013 Office visit Fay Nur APRN 11/10/2013 Office visit 11/10/2013 Office visit Tori Staley APRN 10/22/2013 Office visit Tori Staley APRN 09/23/2013 Office visit [place] Sagastume DO 09/04/2013 Office visit Lucinda Marquez MD 07/25/2013 Office visit [place] Sagastume DO 06/13/2013 Office visit Tori Staley APRN 05/27/2013 Office visit Tori Staley APRN 05/15/2013 Office visit Tori Staley APRN 11/25/2012 Office visit Tori Staley APRN 08/27/2012 Office visit Tori Staley APRN 05/31/2012 Office visit Tori Staley APRN 03/25/2012 Office visit Tori Staley APRN 03/15/2012 Office visit Tori Staley APRN 03/12/2012 Office visit Johnathon Amos DO 03/11/2012 Office visit Tori Staley APRN 12/20/2011 Office visit [place] Sagastume DO 12/13/2011 [facility] [place] Sagastume DO 12/12/2011 Office visit [place] Sagastume DO 08/21/2011 Office visit Lucinda Marquez MD 07/18/2011 Office visit Lucinda Marquez MD 07/13/2011 Office visit Johnathon Amos DO 06/28/2011 Office visit Tori Staley APRN 06/22/2011 Office visit Tori Staley APRN 06/19/2011 Nurse visit Lucinda Marquez MD 06/05/2011 Office visit Giovany Wilson MD 05/22/2011 Laboratory Giovany Wilson MD 05/18/2011 Office visit Lucinda Marquez MD 05/08/2011 Laboratory Giovany Wilson MD 04/24/2011 Nurse visit Lucinda Marquez MD 04/24/2011 Office visit Giovany Wilson MD 04/10/2011 Office visit Giovany Wilson MD 03/27/2011 Office visit Giovany Wilson MD 03/13/2011 Office visit Giovany Wilson MD 03/13/2011 Office visit Lucinda Marquez MD 02/27/2011 Office visit Giovnay Wilson MD 02/09/2011 Nurse visit Lucinda Marquez MD 01/24/2011 Office visit Giovany Wilson MD 01/16/2011 Laboratory Giovany Wilson MD 01/12/2011 Office visit Lucinda Marquez MD 01/09/2011 Voided Giovany Wilson MD 12/27/2010 Voided Giovany Wilson MD 12/15/2010 Nurse visit Lucinda Marquez MD 12/12/2010 Laboratory Giovany Wilson MD 11/28/2010 Voided Giovany Wilson MD 11/22/2010 Office visit Lucinda Marquez MD 11/14/2010 Laboratory Giovany Wilson MD 11/09/2010 Office visit Giovany Wilson MD 11/07/2010 Voided Lucinda Marquez MD 10/31/2010 Laboratory Giovany Wilson MD 10/24/2010 Office visit Lucinda Marquez MD 10/18/2010 Laboratory Giovany Wilson MD 10/10/2010 Laboratory Giovany Wilson MD 10/03/2010 Laboratory Tori Chery RN 09/27/2010 Laboratory Giovany Wilson MD 09/27/2010 Office visit Lucinda Marquez MD 09/19/2010 Office visit Lucinda Marquez MD 09/19/2010 Laboratory Giovany Wilson MD 09/12/2010 Laboratory Giovany Wilson MD 09/05/2010 Voided Giovany Wilson MD 08/29/2010 Nurse visit Giovany Wilson MD 08/22/2010 Voided Tori Chery RN 08/16/2010 Laboratory Giovany Wilson MD 08/08/2010 Laboratory Giovany Wilson MD 08/01/2010 Laboratory Giovany Wilson MD 07/26/2010 Laboratory Giovany Wilson MD 07/18/2010 Voided Giovany Wilson MD 07/12/2010 Laboratory Giovany Wilson MD 07/04/2010 Office visit Giovany Wilson MD
--- OUTSIDE RECORDS SUMMARY | 2016-10-04 21:03 | XMS REPORT ---
Author Author Tori Staley Organization [facility] Address [address] [place], [place] [id number] Care Team Providers Care Gasoline Engine Assembler Name Role Phone Tori Staley PCP Unavailable Tori Staley PreferredProvider Unavailable Allergies and Adverse Reactions Name Reaction Notes PENICILLINS SULFA (SULFONAMIDES) Plan of Treatment Planned Activity Comments Planned Date Planned Time Plan/Goal MONA PREP. 08/01/2016 12:00 AM MONA PREP. 08/01/2016 12:00 AM CHLAMYDIA TRACHOMATIS AMP PROBE 08/01/2016 12:00 AM NEISSERIA GONORRHOEAE AMP PROBE 08/01/2016 12:00 AM Trichomonas culture 08/01/2016 12:00 AM Urine Culture. 08/01/2016 12:00 AM HIV AG/AB COMBO 08/01/2016 12:00 AM HEPATITIS B SURF AB 08/01/2016 12:00 AM RPR QUANTITATIVE 08/01/2016 12:00 AM Rib Series, Unilateral 08/27/2012 12:00 [...] PUFF BY MOUTH TWICE DAILY Klonopin oral Flagyl 500 mg oral tablet 08/01/2016 08/08/2016 take 1 tablet (500 mg) by oral route every 12 hours for 7 days Name Start Date Expiration Date SIG Comments [...] daily in the morning for 30 days Discontinued Name Start Date Discontinued Date [...] TAKE ONE TABLET BY MOUTH ONCE DAILY Problem List Description Status Onset Drug Abuse History Active 10/03/2010 Anxiety Active Asthma Active Chronic back pain Active Depression Active Migraine Active Constipation, Slow transit Active 07/30/2013 Abdominal bloating Active 09/29/2013 Ascites Active 09/29/2013 Cirrhosis Active 09/29/2013 Hepatitis Active 09/29/2013 Hepatitis C Active 10/23/2013 Vital Signs Date Time BP-Sys(mm[Hg] BP-Yashira(mm[Hg]) HR(bpm) RR(rpm) Temp WT HT HC BMI BSA BMI Percentile O2 Sat(%) 08/01/2016 10:18:00 AM 134 mmHg 76 mmHg [...] W/SCOPE Reviewed 01/24/2011 12:00 AM Toradol 60 Mg,[facility] [place]#[id number] Katie Reviewed 01/24/2011 12:00 AM THER/PROPH/DIAG INJ SC/IM Reviewed 02/14/2011 12:00 AM RAPID Urine drug screen Reviewed 02/27/2011 12:00 AM Urine drug screen Reviewed 03/13/2011 12:00 AM Urine drug screen Reviewed 04/10/2011 12:00 AM RAPID Urine drug screen Reviewed 04/24/2011 12:00 AM RAPID Urine drug screen Reviewed 04/24/2011 12:00 AM THER/PROPH/DIAG INJ SC/IM Reviewed 04/24/2011 12:00 AM Toradol 15 Mg,Nd#[id number] Reviewed 04/24/2011 12:00 AM Toradol 15 Mg,[facility] [place]#[address]-01 (Warren)-- gave 30 mg=1 ml Reviewed 05/08/2011 12:00 AM RAPID Urine drug screen Reviewed 05/18/2011 12:00 AM INJECT TRIGGER POINTS 3/> Reviewed 05/18/2011 12:00 AM HOT OR COLD PACKS THERAPY Reviewed 05/22/2011 12:00 AM RAPID Urine drug screen Reviewed 06/19/2011 12:00 AM OFFICE/OUTPATIENT VISIT EST Reviewed 06/22/2011 12:00 AM THER/PROPH/DIAG INJ SC/IM Reviewed 06/22/2011 12:00 AM Decadron 1 mg [facility]#[id number] (Bette) Reviewed 06/22/2011 12:00 AM Depo-Medrol 80 mg [facility]#[id number]-Dkobdbsy Reviewed 07/18/2011 12:00 AM INJECT TRIGGER POINTS 3/> Reviewed 07/18/2011 12:00 AM HOT OR COLD PACKS THERAPY Reviewed 08/01/2016 11:07 AM URINALYSIS AUTO W/O SCOPE Reviewed 08/01/2016 12:00 AM SMEAR WET MOUNT SALINE/INK Returned 08/01/2016 12:00 AM Rocephin 250 Mg Injection Reviewed 03/11/2012 12:00 AM THER/PROPH/DIAG INJ SC/IM Reviewed 03/11/2012 12:00 AM Decadron, Per 1 Mg [facility]# [address]-51 Reviewed 03/11/2012 12:00 AM Depo-Medrol, Per 80 Mg [facility]#0523-7268-77 Reviewed 03/11/2012 12:00 AM Rocephin 500 Mg [facility]#3759-1357-73 Reviewed 03/15/2012 12:00 AM COMPLETE CBC W/AUTO DIFF WBC Reviewed 03/15/2012 12:00 AM COMPREHEN METABOLIC PANEL Reviewed 03/15/2012 12:00 AM ASSAY OF LIPASE Reviewed 03/15/2012 12:00 AM X-RAY EXAM OF ABDOMEN Reviewed 05/31/2012 12:00 AM THER/PROPH/DIAG INJ SC/IM Reviewed 05/31/2012 12:00 AM Decadron, Per 1 Mg [facility]# [address]-07 Reviewed 05/31/2012 12:00 AM Depo-Medrol, Per 80 Mg [facility]#1534-4553-14 Reviewed 08/27/2012 12:00 AM CHEST X-RAY 2VW FRONTAL&LATL Reviewed 11/25/2012 12:00 AM Rapid Urine drug screen Reviewed 05/15/2013 12:00 AM THER/PROPH/DIAG INJ SC/IM Reviewed 05/15/2013 12:00 AM Decadron, Per 1 Mg [facility]# [address]-05 Reviewed 05/15/2013 12:00 AM Depo-Medrol, Per 80 Mg [facility]#2660-9476-81 Reviewed 05/15/2013 12:00 AM MRI LUMBAR SPINE W/DYE Reviewed 10/22/2013 12:00 AM ASSAY THYROID STIM HORMONE Reviewed 11/10/2013 12:00 AM LIPID PANEL Reviewed 11/10/2013 12:00 AM HIV-1 AG W/HIV-1 & HIV-2 AB Reviewed 11/10/2013 12:00 AM MAMMOGRAM BOTH BREASTS Reviewed 12/11/2013 12:00 AM THER/PROPH/DIAG INJ SC/IM Reviewed 12/11/2013 12:00 AM Toradol 15 Mg [facility]#2102-0224-65 Reviewed 03/04/2014 12:00 AM COMPLETE CBC W/AUTO [...] screen Reviewed 09/19/2010 12:00 AM Toradol 15 Mg,[facility] [place]#[address]-18 (Warren)-- gave 30 mg=1 ml Reviewed 09/27/2010 12:00 [...] C Quantitation HCV Not Detected HCV 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 History of [...] 8:02AM Anxiety Disorder Feb 27 2011 8:21AM group home medication use Jun 05 2011 8:48AM exterminator medication use Mar 27 2011 8:49AM Lumbar [...] 10:20AM Drug use Aug 01 2016 10:20AM Payers Insurance Name Company Name Plan Name Plan Number Policy Number Policy Group Number Start Date BCBS [facility] [id number] N/A Aetna Aetna INVALID [id number] N/A Aetna Aetna [id number] Thursday, 2013 History of Encounters Visit Date Visit Type Provider 08/01/2016 Office visit Tori Staley APRN 12/11/2013 [...] visit Tori Staley APRN 08/27/2012 Office visit Troi Staley MICROFILMING DOCUMENT PREPARER 05/31/2012 Office visit Tori Staley MICROFILMING DOCUMENT PREPARER 03/25/2012 Office visit Tori Staley MICROFILMING DOCUMENT PREPARER 03/15/2012 Office visit Tori Staley MICROFILMING DOCUMENT PREPARER 03/12/2012 Office visit Johnathon Amos DO 03/11/2012 Office visit Tori Staley MICROFILMING DOCUMENT PREPARER 12/20/2011 Office visit [place] Sagastume DO 12/13/2011 [facility] [place] Traoreuman DO 12/12/2011 Office visit [place] Sagastume DO 08/21/2011 Office visit Lucinda Marquez MD 07/18/2011 Office visit Lucinda Marquez MD 07/13/2011 Office visit Johnathon Parkerhite DO 06/28/2011 Office visit Tori Staley MICROFILMING DOCUMENT PREPARER 06/22/2011 Office visit Tori Luís MICROFILMING DOCUMENT PREPARER 06/19/2011 Nurse visit Lucinda Marquez MD 06/05/2011 [...] visit Lucinda Marquez MD 02/27/2011 Office visit Giovany Wilson MD 02/09/2011 Nurse visit Lucinda Marquez MD 01/24/2011 Office visit Giovany Wilson MD 01/16/2011 Laboratory Giovany Wilson MD 01/12/2011 Office visit Lucinda Marquez MD 01/09/2011 Voided Giovany Wilson MD 12/27/2010 Voided Giovany Wilson MD 12/15/2010 Nurse visit Lucinda Marquez MD 12/12/2010 Laboratory Giovany Wilson MD 11/28/2010 Voidmadeline Wilson MD 11/22/2010 Office visit Lucinda Marquez [...]
--- OUTSIDE RECORDS SUMMARY | 2016-10-04 21:05 | XMS REPORT ---
Author Author Tori Staley Organization [facility] Address [address] [place], [place] [id number] Care Team Providers Care Hospital Pharmacist Name Role Phone Tori Staley PCP Unavailable [...] 08/17/2016 12:00 AM LIPASE. 08/17/2016 12:00 AM Abdomen 2View Decub/Upright- MOB 08/17/2016 12:00 AM Pap smear 08/21/2016 12:00 AM Yeast culture genital 08/21/2016 12:00 AM Bacterial vaginosis panel (Gardnerella vaginalis, Atopobium vaginae, BV associated Bacteria 2 08/21/2016 12:00 AM Rib Series, Unilateral 08/27/2012 12:00 [...] PUFF BY MOUTH TWICE DAILY Klonopin oral clindamycin HCl 300 mg oral capsule 08/17/2016 08/24/2016 take 1 capsule (300 mg) by oral route 2 times per day for 7 days Name Start Date Expiration [...] route every 12 hours for 7 days Discontinued Name Start Date Discontinued Date [...] W/SCOPE Reviewed 01/24/2011 12:00 AM Toradol 60 Mg,[facility]#[id number] Katie Reviewed 01/24/2011 12:00 AM THER/PROPH/DIAG INJ SC/IM Reviewed 02/14/2011 12:00 AM RAPID Urine drug screen Reviewed 02/27/2011 12:00 AM Urine drug screen Reviewed 03/13/2011 12:00 AM Urine drug screen Reviewed 04/10/2011 12:00 AM RAPID Urine drug screen Reviewed 04/24/2011 12:00 AM RAPID Urine drug screen Reviewed 04/24/2011 12:00 AM THER/PROPH/DIAG INJ SC/IM Reviewed 04/24/2011 12:00 AM Toradol 15 Mg,[facility]#[id number] Reviewed 04/24/2011 12:00 AM Toradol 15 Mg,[facility]#[address]-72 ([place])-- gave 30 mg=1 ml Reviewed 05/08/2011 12:00 AM RAPID Urine drug screen Reviewed 05/18/2011 12:00 AM INJECT TRIGGER POINTS 3/> Reviewed 05/18/2011 12:00 AM HOT OR COLD PACKS THERAPY Reviewed 05/22/2011 12:00 AM RAPID Urine drug screen Reviewed 06/19/2011 12:00 AM OFFICE/OUTPATIENT VISIT EST Reviewed 06/22/2011 12:00 AM THER/PROPH/DIAG INJ SC/IM Reviewed 06/22/2011 12:00 AM Decadron 1 mg [facility]#[id number] ([place]) Reviewed 06/22/2011 12:00 AM Depo-Medrol 80 mg [place]#[id number]-Topmfzrl Reviewed 07/18/2011 12:00 AM INJECT TRIGGER POINTS 3/> Reviewed 07/18/2011 12:00 AM HOT OR COLD PACKS THERAPY Reviewed 08/01/2016 11:07 AM URINALYSIS AUTO W/O SCOPE Reviewed 08/01/2016 12:00 AM SMEAR WET MOUNT SALINE/INK Returned 08/01/2016 12:00 AM CULTURE SCREEN ONLY Returned 08/01/2016 12:00 AM URINE CULTURE/COLONY COUNT Returned 08/01/2016 12:00 AM HIV-1 AG W/HIV-1 & HIV-2 AB Returned 08/01/2016 12:00 AM HEP B SURFACE ANTIBODY Returned 08/01/2016 12:00 AM SYPHILIS TEST NON-TREP QUANT Returned 08/01/2016 12:00 AM Rocephin 250 Mg Injection Reviewed 08/17/2016 12:00 AM URINALYSIS AUTO W/SCOPE Returned 03/11/2012 12:00 AM THER/PROPH/DIAG INJ SC/IM Reviewed 03/11/2012 12:00 AM Decadron, Per 1 Mg [facility]# [address]-94 Reviewed 03/11/2012 12:00 AM Depo-Medrol, Per 80 Mg [facility]#3939-2217-12 Reviewed 03/11/2012 12:00 AM Rocephin 500 Mg [facility]#9618-9724-91 Reviewed 03/15/2012 12:00 AM COMPLETE CBC W/AUTO DIFF WBC Reviewed 03/15/2012 12:00 AM COMPREHEN METABOLIC PANEL Reviewed 03/15/2012 12:00 AM ASSAY OF LIPASE Reviewed 03/15/2012 12:00 AM X-RAY EXAM OF ABDOMEN Reviewed 05/31/2012 12:00 AM THER/PROPH/DIAG INJ SC/IM Reviewed 05/31/2012 12:00 AM Decadron, Per 1 Mg [facility]# [address]-54 Reviewed 05/31/2012 12:00 AM Depo-Medrol, Per 80 Mg [facility]#7702-9365-17 Reviewed 08/27/2012 12:00 AM CHEST X-RAY 2VW FRONTAL&LATL Reviewed 11/25/2012 12:00 AM Rapid Urine drug screen Reviewed 05/15/2013 12:00 AM THER/PROPH/DIAG INJ SC/IM Reviewed 05/15/2013 12:00 AM Decadron, Per 1 Mg [facility]# [address]-62 Reviewed 05/15/2013 12:00 AM Depo-Medrol, Per 80 Mg [facility]#8002-3315-30 Reviewed 05/15/2013 12:00 AM MRI LUMBAR SPINE W/DYE Reviewed 10/22/2013 12:00 AM ASSAY THYROID STIM HORMONE Reviewed 11/10/2013 12:00 AM LIPID PANEL Reviewed 11/10/2013 12:00 AM HIV-1 AG W/HIV-1 & HIV-2 AB Reviewed 11/10/2013 12:00 AM MAMMOGRAM BOTH BREASTS Reviewed 12/11/2013 12:00 AM THER/PROPH/DIAG INJ SC/IM Reviewed 12/11/2013 12:00 AM Toradol 15 Mg [facility]#0657-0266-39 Reviewed 03/04/2014 12:00 AM COMPLETE CBC W/AUTO [...] screen Reviewed 09/19/2010 12:00 AM Toradol 15 Mg,[facility]#[address]-14 ([place])-- gave 30 mg=1 ml Reviewed 09/27/2010 12:00 [...] C Quantitation HCV Not Detected HCV log10 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 11/17/2013 8:20 AM TRIGLYCERIDES 207.0 mg/dLCHOLESTEROL 249.0 [...] 8:02AM Anxiety Disorder Feb 27 2011 8:21AM intermediate frame tender medication use Jun 05 2011 8:48AM halfway medication use Mar 27 2011 8:49AM Lumbar [...] vagina, initial encounter Aug 21 2016 10:47AM Payers Insurance Name Company Name Plan Name Plan Number Policy Number Policy Group Number Start Date BCBS Bcbs [facility] [id number] N/A Aetna Aetna INVALID [id number] N/A Aetna Aetna [id number] Thursday, 2013 History of Encounters Visit Date Visit Type Provider 08/21/2016 Office visit Tori Staley REGIONAL ACCOUNT MANAGER 08/17/2016 Office visit Tori Luís REGIONAL ACCOUNT MANAGER 08/01/2016 Office visit Tori Staley REGIONAL ACCOUNT MANAGER 12/11/2013 Office visit Lucinda Marquez MD 12/08/2013 Office visit Fay Nur REGIONAL ACCOUNT MANAGER 11/10/2013 Office visit 11/10/2013 Office visit Tori Staley REGIONAL ACCOUNT MANAGER 10/22/2013 Office visit Tori Staley REGIONAL ACCOUNT MANAGER 09/23/2013 Office visit [place] Sagastume DO 09/04/2013 Office visit Lucinda Marquez MD 07/25/2013 Office visit [place] Sagastume DO 06/13/2013 Office visit Tori Luís REGIONAL ACCOUNT MANAGER 05/27/2013 Office visit Tori Luís REGIONAL ACCOUNT MANAGER 05/15/2013 Office visit Tori Staley REGIONAL ACCOUNT MANAGER 11/25/2012 Office visit Tori Staley REGIONAL ACCOUNT MANAGER 08/27/2012 Office visit Tori Luís REGIONAL ACCOUNT MANAGER 05/31/2012 Office visit Tori Luís REGIONAL ACCOUNT MANAGER 03/25/2012 Office visit Tori Luís REGIONAL ACCOUNT MANAGER 03/15/2012 Office visit Tori Staley REGIONAL ACCOUNT MANAGER 03/12/2012 Office visit Johnathon Amos DO 03/11/2012 Office visit Tori Staley REGIONAL ACCOUNT MANAGER 12/20/2011 Office visit [place] Sagastume DO 12/13/2011 [facility] [place] Bouman DO 12/12/2011 Office visit [place] Sagastume DO 08/21/2011 Office visit Lucinda Marquez MD 07/18/2011 Office visit Lucinda Marquez MD 07/13/2011 Office visit Johnathon Amos DO 06/28/2011 Office visit Tori Staley REGIONAL ACCOUNT MANAGER 06/22/2011 Office visit Tori Staley REGIONAL ACCOUNT MANAGER 06/19/2011 Nurse visit Lucinda Marquez MD 06/05/2011 [...]
--- OUTSIDE RECORDS SUMMARY | 2016-10-04 21:07 | XMS REPORT ---
Author Author Tori Staley Organization [facility] Address [address] [place], [place] [address] Care Team Providers Care Automotive Product Specialist Name Role Phone Tori Staley PCP Unavailable [...] W/SCOPE Reviewed 01/24/2011 12:00 AM Toradol 60 Mg,[facility]#[id number] Wilson Reviewed 01/24/2011 12:00 AM THER/PROPH/DIAG INJ SC/IM Reviewed 02/14/2011 12:00 AM RAPID Urine drug screen Reviewed 02/27/2011 12:00 AM Urine drug screen Reviewed 03/13/2011 12:00 AM Urine drug screen Reviewed 04/10/2011 12:00 AM RAPID Urine drug screen Reviewed 04/24/2011 12:00 AM RAPID Urine drug screen Reviewed 04/24/2011 12:00 AM THER/PROPH/DIAG INJ SC/IM Reviewed 04/24/2011 12:00 AM Toradol 15 Mg,[facility]#[id number] Reviewed 04/24/2011 12:00 AM Toradol 15 Mg,[facility]#[address]-98 ([place])-- gave 30 mg=1 ml Reviewed 05/08/2011 12:00 AM RAPID Urine drug screen Reviewed 05/18/2011 12:00 AM INJECT TRIGGER POINTS 3/> Reviewed 05/18/2011 12:00 AM HOT OR COLD PACKS THERAPY Reviewed 05/22/2011 12:00 AM RAPID Urine drug screen Reviewed 06/19/2011 12:00 AM OFFICE/OUTPATIENT VISIT EST Reviewed 06/22/2011 12:00 AM THER/PROPH/DIAG INJ SC/IM Reviewed 06/22/2011 12:00 AM Decadron 1 mg [facility]#[id number] ([place]) Reviewed 06/22/2011 12:00 AM Depo-Medrol 80 mg [facility]#[id number]-Bryrmjqd Reviewed 07/18/2011 12:00 AM INJECT TRIGGER POINTS [...] 03/11/2012 12:00 AM Decadron, Per 1 Mg [facility]# [address]-62 Reviewed 03/11/2012 12:00 AM Depo-Medrol, Per 80 Mg [facility]#0037-7255-53 Reviewed 03/11/2012 12:00 AM Rocephin 500 Mg [facility]#8669-9576-38 Reviewed 03/15/2012 12:00 AM COMPLETE CBC W/AUTO DIFF WBC Reviewed 03/15/2012 12:00 AM COMPREHEN METABOLIC PANEL Reviewed 03/15/2012 12:00 AM ASSAY OF LIPASE Reviewed 03/15/2012 12:00 AM X-RAY EXAM OF ABDOMEN Reviewed 05/31/2012 12:00 AM THER/PROPH/DIAG INJ SC/IM Reviewed 05/31/2012 12:00 AM Decadron, Per 1 Mg [facility]# [address]-39 Reviewed 05/31/2012 12:00 AM Depo-Medrol, Per 80 Mg [facility]#7668-6746-75 Reviewed 08/27/2012 12:00 AM CHEST X-RAY 2VW FRONTAL&LATL Reviewed 11/25/2012 12:00 AM Rapid Urine drug screen Reviewed 05/15/2013 12:00 AM THER/PROPH/DIAG INJ SC/IM Reviewed 05/15/2013 12:00 AM Decadron, Per 1 Mg [facility]# [address]-40 Reviewed 05/15/2013 12:00 AM Depo-Medrol, Per 80 Mg [facility]#1962-[address]-99 Reviewed 05/15/2013 12:00 AM MRI LUMBAR SPINE W/DYE Reviewed 10/22/2013 12:00 AM ASSAY THYROID STIM HORMONE Reviewed 11/10/2013 12:00 AM LIPID PANEL Reviewed 11/10/2013 12:00 AM HIV-1 AG W/HIV-1 & HIV-2 AB Reviewed 11/10/2013 12:00 AM MAMMOGRAM BOTH BREASTS Reviewed 12/11/2013 12:00 AM THER/PROPH/DIAG INJ SC/IM Reviewed 12/11/2013 12:00 AM Toradol 15 Mg [facility]#4349-5696-17 Reviewed 03/04/2014 12:00 AM COMPLETE CBC W/AUTO [...] screen Reviewed 09/19/2010 12:00 AM Toradol 15 Mg,[facility]#[address]-16 ([place])-- gave 30 mg=1 ml Reviewed 09/27/2010 12:00 [...] C Quantitation HCV Not Detected HCV log10 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
--- OUTSIDE RECORDS SUMMARY | 2016-10-04 21:09 | XMS REPORT ---
Author Author Tori Staley Organization [facility] Address [address] [place], [place] [address] Care Team Providers Care Liquid Hydrogen Plant Operator Name Role Phone Tori Staley PCP Unavailable Tori Staley PreferredProvider Unavailable Allergies and Adverse Reactions Name Reaction Notes PENICILLINS SULFA (SULFONAMIDES) Plan of Treatment Planned Activity Comments Planned Date Planned Time Plan/Goal MONA PREP. 08/01/2016 12:00 AM MONA PREP. 08/01/2016 12:00 AM CHLAMYDIA TRACHOMATIS AMP PROBE 08/01/2016 12:00 AM NEISSERIA GONORRHOEAE AMP PROBE 08/01/2016 12:00 AM Trichomonas culture 08/01/2016 12:00 AM Rib Series, Unilateral 08/27/2012 [...] W/SCOPE Reviewed 01/24/2011 12:00 AM Toradol 60 Mg,[facility]#[id number] Katie Reviewed 01/24/2011 12:00 AM THER/PROPH/DIAG INJ SC/IM Reviewed 02/14/2011 12:00 AM RAPID Urine drug screen Reviewed 02/27/2011 12:00 AM Urine drug screen Reviewed 03/13/2011 12:00 AM Urine drug screen Reviewed 04/10/2011 12:00 AM RAPID Urine drug screen Reviewed 04/24/2011 12:00 AM RAPID Urine drug screen Reviewed 04/24/2011 12:00 AM THER/PROPH/DIAG INJ SC/IM Reviewed 04/24/2011 12:00 AM Toradol 15 Mg,[facility]#[id number] Reviewed 04/24/2011 12:00 AM Toradol 15 Mg,[facility]#[address]-32 ([place])-- gave 30 mg=1 ml Reviewed 05/08/2011 12:00 AM RAPID Urine drug screen Reviewed 05/18/2011 12:00 AM INJECT TRIGGER POINTS 3/> Reviewed 05/18/2011 12:00 AM HOT OR COLD PACKS THERAPY Reviewed 05/22/2011 12:00 AM RAPID Urine drug screen Reviewed 06/19/2011 12:00 AM OFFICE/OUTPATIENT VISIT EST Reviewed 06/22/2011 12:00 AM THER/PROPH/DIAG INJ SC/IM Reviewed 06/22/2011 12:00 AM Decadron 1 mg [facility]#[id number] ([place]) Reviewed 06/22/2011 12:00 AM Depo-Medrol 80 mg [facility]#[id number]-Hoqqtisg Reviewed 07/18/2011 12:00 AM INJECT TRIGGER POINTS 3/> Reviewed 07/18/2011 12:00 AM HOT OR COLD PACKS THERAPY Reviewed 08/01/2016 11:07 AM URINALYSIS AUTO W/O SCOPE Reviewed 08/01/2016 12:00 AM SMEAR WET MOUNT SALINE/INK Returned 08/01/2016 12:00 AM URINE CULTURE/COLONY COUNT Returned 08/01/2016 12:00 AM HIV-1 AG W/HIV-1 & HIV-2 AB Returned 08/01/2016 12:00 AM HEP B SURFACE ANTIBODY Returned 08/01/2016 12:00 AM SYPHILIS TEST NON-TREP QUANT Returned 08/01/2016 12:00 AM Rocephin 250 Mg Injection Reviewed 03/11/2012 12:00 AM THER/PROPH/DIAG INJ SC/IM Reviewed 03/11/2012 12:00 AM Decadron, Per 1 Mg [facility]# [address]-74 Reviewed 03/11/2012 12:00 AM Depo-Medrol, Per 80 Mg [facility]#8810-7260-09 Reviewed 03/11/2012 12:00 AM Rocephin 500 Mg [facility]#1097-9788-78 Reviewed 03/15/2012 12:00 AM COMPLETE CBC W/AUTO DIFF WBC Reviewed 03/15/2012 12:00 AM COMPREHEN METABOLIC PANEL Reviewed 03/15/2012 12:00 AM ASSAY OF LIPASE Reviewed 03/15/2012 12:00 AM X-RAY EXAM OF ABDOMEN Reviewed 05/31/2012 12:00 AM THER/PROPH/DIAG INJ SC/IM Reviewed 05/31/2012 12:00 AM Decadron, Per 1 Mg [facility]# [address]-28 Reviewed 05/31/2012 12:00 AM Depo-Medrol, Per 80 Mg [facility]#4322-4690-32 Reviewed 08/27/2012 12:00 AM CHEST X-RAY 2VW FRONTAL&LATL Reviewed 11/25/2012 12:00 AM Rapid Urine drug screen Reviewed 05/15/2013 12:00 AM THER/PROPH/DIAG INJ SC/IM Reviewed 05/15/2013 12:00 AM Decadron, Per 1 Mg [facility]# [address]-76 Reviewed 05/15/2013 12:00 AM Depo-Medrol, Per 80 Mg [facility]#7798-7729-97 Reviewed 05/15/2013 12:00 AM MRI LUMBAR SPINE W/DYE Reviewed 10/22/2013 12:00 AM ASSAY THYROID STIM HORMONE Reviewed 11/10/2013 12:00 AM LIPID PANEL Reviewed 11/10/2013 12:00 AM HIV-1 AG W/HIV-1 & HIV-2 AB Reviewed 11/10/2013 12:00 AM MAMMOGRAM BOTH BREASTS Reviewed 12/11/2013 12:00 AM THER/PROPH/DIAG INJ SC/IM Reviewed 12/11/2013 12:00 AM Toradol 15 Mg 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 History of [...] 8:02AM Anxiety Disorder Feb 27 2011 8:21AM snf medication use Jun 05 2011 8:48AM snf medication use Mar 27 2011 8:49AM Lumbar [...] Acute Mar 11 2012 2:20PM Abdominal Pain Feb 2012 10:37AM Sprain/strain of left shoulder Mar 12 2012 9:47AM Constipation Fe 11 2013 8:18AM Left Pain in joint; shoulder region [...] Policy Group Number Start Date BCBS Bcbs [facility] [id number] N/A Aetna Aetna INVALID [id number] N/A Aetna Aetna [id number] Thursday, 2013 History of Encounters Visit Date Visit Type Provider 08/01/2016 Office visit Tori Staley ASSISTANT PROFESSOR 12/11/2013 Office visit Lucinda Marquez MD 12/08/2013 Office visit Fay Nur ASSISTANT PROFESSOR 11/10/2013 Office visit 11/10/2013 Office visit Tori Staley ASSISTANT PROFESSOR 10/22/2013 Office visit Tori Staley ASSISTANT PROFESSOR 09/23/2013 Office visit [place] Tanika DO 09/04/2013 Office visit Lucinda Marquez MD 07/25/2013 Office visit [place] Tanika DO 06/13/2013 Office visit Tori Staley ASSISTANT PROFESSOR 05/27/2013 Office visit Tori Staley ASSISTANT PROFESSOR 05/15/2013 Office visit Tori Staley ASSISTANT PROFESSOR 11/25/2012 Office visit Tori Staley ASSISTANT PROFESSOR 08/27/2012 Office visit Tori Staley ASSISTANT PROFESSOR 05/31/2012 Office visit Tori Staley ASSISTANT PROFESSOR 03/25/2012 Office visit Tori Staley ASSISTANT PROFESSOR 03/15/2012 Office visit Tori Staley ASSISTANT PROFESSOR 03/12/2012 Office visit Johnathon Parkerhite DO 03/11/2012 Office visit Tori Luís ASSISTANT PROFESSOR 12/20/2011 Office visit [place] Tanika DO 12/13/2011 [facility] Raleigh Leónuman DO 12/12/2011 Office visit [place] Sagastume DO 08/21/2011 Office visit Lucinda Marquez MD 07/18/2011 Office visit Lucinda Marquez MD 07/13/2011 Office visit Johnathon Amos DO 06/28/2011 Office visit Tori Luís ASSISTANT PROFESSOR 06/22/2011 Office visit Tori Luís ASSISTANT PROFESSOR 06/19/2011 Nurse visit Lucinda Marquez MD 06/05/2011 [...]
--- OUTSIDE RECORDS SUMMARY | 2016-10-04 21:11 | XMS REPORT ---
Author Author Tori Staley Organization [facility] Address [address] [place], [place] [address] Care Team Providers Care Associate Professor Of Library Science Name Role Phone Tori Staley PCP Unavailable [...] PUFF BY MOUTH TWICE DAILY Klonopin oral Name Start Date Expiration Date SIG Comments [...] every 4 hours as need prn Medrol (Zakc) 4 mg oral tablets,dose pack 06/13/2013 09/04/2013 [...] W/SCOPE Reviewed 01/24/2011 12:00 AM Toradol 60 Mg,[facility]#[id number] Katie Reviewed 01/24/2011 12:00 AM THER/PROPH/DIAG INJ SC/IM Reviewed 02/14/2011 12:00 AM RAPID Urine drug screen Reviewed 02/27/2011 12:00 AM Urine drug screen Reviewed 03/13/2011 12:00 AM Urine drug screen Reviewed 04/10/2011 12:00 AM RAPID Urine drug screen Reviewed 04/24/2011 12:00 AM RAPID Urine drug screen Reviewed 04/24/2011 12:00 AM THER/PROPH/DIAG INJ SC/IM Reviewed 04/24/2011 12:00 AM Toradol 15 Mg,[facility]#[id number] Reviewed 04/24/2011 12:00 AM Toradol 15 Mg,[facility]#[address]-28 ([place])-- gave 30 mg=1 ml Reviewed 05/08/2011 12:00 AM RAPID Urine drug screen Reviewed 05/18/2011 12:00 AM INJECT TRIGGER POINTS 3/> Reviewed 05/18/2011 12:00 AM HOT OR COLD PACKS THERAPY Reviewed 05/22/2011 12:00 AM RAPID Urine drug screen Reviewed 06/19/2011 12:00 AM OFFICE/OUTPATIENT VISIT EST Reviewed 06/22/2011 12:00 AM THER/PROPH/DIAG INJ SC/IM Reviewed 06/22/2011 12:00 AM Decadron 1 mg [facility]#[id number] ([place]) Reviewed 06/22/2011 12:00 AM Depo-Medrol 80 mg [facility]#[id number]-Dyyaruts Reviewed 07/18/2011 12:00 AM INJECT TRIGGER POINTS 3/> Reviewed 07/18/2011 12:00 AM HOT OR COLD PACKS THERAPY Reviewed 08/01/2016 12:00 AM SMEAR WET MOUNT SALINE/INK Returned 08/01/2016 12:00 AM Rocephin 250 Mg Injection Reviewed 08/01/2016 11:07 AM URINALYSIS AUTO W/O SCOPE Reviewed 03/11/2012 12:00 AM THER/PROPH/DIAG INJ SC/IM Reviewed 03/11/2012 12:00 AM Decadron, Per 1 Mg [facility]# [address]-19 Reviewed 03/11/2012 12:00 AM Depo-Medrol, Per 80 Mg [facility]#9897-4082-85 Reviewed 03/11/2012 12:00 AM Rocephin 500 Mg [facility]#9603-4126-84 Reviewed 03/15/2012 12:00 AM COMPLETE CBC W/AUTO DIFF WBC Reviewed 03/15/2012 12:00 AM COMPREHEN METABOLIC PANEL Reviewed 03/15/2012 12:00 AM ASSAY OF LIPASE Reviewed 03/15/2012 12:00 AM X-RAY EXAM OF ABDOMEN Reviewed 05/31/2012 12:00 AM THER/PROPH/DIAG INJ SC/IM Reviewed 05/31/2012 12:00 AM Decadron, Per 1 Mg [facility]# [address]-26 Reviewed 05/31/2012 12:00 AM Depo-Medrol, Per 80 Mg [facility]#9530-2787-13 Reviewed 08/27/2012 12:00 AM CHEST X-RAY 2VW FRONTAL&LATL Reviewed 11/25/2012 12:00 AM Rapid Urine drug screen Reviewed 05/15/2013 12:00 AM THER/PROPH/DIAG INJ SC/IM Reviewed 05/15/2013 12:00 AM Decadron, Per 1 Mg [facility]# [address]-84 Reviewed 05/15/2013 12:00 AM Depo-Medrol, Per 80 Mg [facility]#2031-1619-70 Reviewed 05/15/2013 12:00 AM MRI LUMBAR SPINE W/DYE Reviewed 10/22/2013 12:00 AM ASSAY THYROID STIM HORMONE Reviewed 11/10/2013 12:00 AM LIPID PANEL Reviewed 11/10/2013 12:00 AM HIV-1 AG W/HIV-1 & HIV-2 AB Reviewed 11/10/2013 12:00 AM MAMMOGRAM BOTH BREASTS Reviewed 12/11/2013 12:00 AM THER/PROPH/DIAG INJ SC/IM Reviewed 12/11/2013 12:00 AM Toradol 15 Mg [facility]#2305-4403-02 Reviewed 03/04/2014 12:00 AM COMPLETE CBC W/AUTO [...] screen Reviewed 09/19/2010 12:00 AM Toradol 15 Mg,[facility]#[address]-13 ([place])-- gave 30 mg=1 ml Reviewed 09/27/2010 12:00 [...] C Quantitation HCV Not Detected HCV log10 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 medication use Jun 05 2011 8:48AM detention medication use Mar 27 2011 8:49AM Lumbar [...] Policy Group Number Start Date BCBS Bcbs [facility] [id number] N/A Aetna Aetna INVALID [id number] N/A Aetna Aetna [id number] Thursday, 2013 History of Encounters Visit Date Visit Type Provider 08/01/2016 Office visit Tori Staley APRN 12/11/2013 Office visit Lucinda Marquez MD 12/08/2013 Office visit Fay Nur PROJECTION CAMERA OPERATOR 11/10/2013 Office visit 11/10/2013 Office visit Tori Staley PROJECTION CAMERA OPERATOR 10/22/2013 Office visit Tori Staley PROJECTION CAMERA OPERATOR 09/23/2013 Office visit [place] Sagastume DO 09/04/2013 Office visit Lucinda Marquez MD 07/25/2013 Office visit [place] Sagastume DO 06/13/2013 Office visit Tori Staley APRN 05/27/2013 Office visit Tori Staley APRN 05/15/2013 Office visit Tori Staley PROJECTION CAMERA OPERATOR 11/25/2012 Office visit Tori Staley APRN 08/27/2012 Office visit Tori Staley APRN 05/31/2012 Office visit Tori Staley APRN 03/25/2012 Office visit Tori Staley APRN 03/15/2012 Office visit Tori Staley APRN 03/12/2012 Office visit Johnathon Amos DO 03/11/2012 Office visit Tori Staley APRN 12/20/2011 Office visit [place] Sagastume DO 12/13/2011 [facility] [place] Sagastume DO 12/12/2011 Office visit [place] Sagastume DO 08/21/2011 Office visit Lucinda Marquez MD 07/18/2011 Office visit Lucinda Marquez MD 07/13/2011 Office visit Johnathon Amos 06/28/2011 Office visit Tori Staley PROJECTION CAMERA OPERATOR 06/22/2011 Office visit Tori Staley PROJECTION CAMERA OPERATOR 06/19/2011 Nurse visit Lucinda Marquez MD 06/05/2011 [...]
--- OUTSIDE RECORDS SUMMARY | 2016-10-04 21:13 | XMS REPORT ---
Author Author Tori Staley Organization [facility] Address [address] [place], [place] [address] Care Team Providers Care Cad Application Support Specialist Name Role Phone Tori Staley PCP [...] 12:00 AM .Lipid Panel 08/17/2016 12:00 AM Urinalysis with C/S If Indicated 08/17/2016 12:00 AM CRP 08/17/2016 12:00 AM TSH 08/17/2016 12:00 AM HEPATITIS C QUANT RNA PCR 08/17/2016 12:00 AM LIPASE. 08/17/2016 12:00 AM Abdomen 2View Decub/Upright- MOB 08/17/2016 12:00 AM Rib Series, Unilateral 08/27/2012 12:00 [...] HC BMI BSA BMI Percentile O2 Sat(%) 08/17/2016 2:01:00 PM 116 mmHg 68 mmHg 96 bpm 20 rpm 98.6 F 111.375 lbs 66 in 17.98 kg/m2 1.53 m2 100 % 08/01/2016 10:18:00 AM 134 mmHg 76 mmHg 79 bpm 18 rpm 98.3 F 117.125 lbs 66 in 18.9043 kg/m 1.5729 m 99 % 12/11/2013 9:05:00 AM 114 mmHg 70 mmHg 76 bpm 18 rpm 98.2 F 154 lbs 66 in 24.86 kg/m2 1.80 m2 12/08/2013 2:10:00 PM 63 bpm 20 rpm 98.5 F 158.8 lbs 66 in 25.6307 kg/m 1.8315 m 99 % 11/10/2013 10:56:00 AM 128 mmHg 66 mmHg 106 bpm 18 rpm 97.1 F 161.125 lbs 66 in 26.01 kg/m2 1.84 m2 98 % 10/22/2013 10:49:00 AM 126 mmHg 72 mmHg 86 bpm 18 rpm 98.7 F 164.25 lbs 66 in 26.5104 kg/m 1.8626 m 100 % 09/23/2013 9:20:00 AM 116 mmHg 80 mmHg 81 bpm 16 rpm 98 F 169 lbs 66 in 27.28 kg/m2 1.89 m2 09/04/2013 8:41:00 AM 112 mmHg 60 mmHg 88 bpm 20 rpm 97.7 F 168 lbs 66 in 27.1156 kg/m 1.8838 m 07/25/2013 3:08:00 PM 112 mmHg 80 mmHg 86 bpm 18 rpm 99 F 169 lbs 66 in 27.28 kg/m2 1.89 m2 06/13/2013 8:16:00 AM 132 mmHg 66 mmHg 78 bpm 18 rpm 97.2 F 175.25 lbs 66 in 28.2858 kg/m 1.924 m 96 % 05/27/2013 9:12:00 AM 108 mmHg 76 mmHg 90 bpm 18 rpm 96.9 F 166.6 lbs 66 in 26.89 kg/m2 1.88 m2 100 % 05/15/2013 9:56:00 AM 136 mmHg 90 mmHg 86 bpm 18 rpm 97.7 F 170.25 lbs 66 in 27.4788 kg/m 1.8963 m 98 % 11/25/2012 9:34:00 AM 124 mmHg 68 mmHg 65 bpm 18 rpm 97.1 F 135.375 lbs 66 in 21.85 kg/m2 1.69 m2 99 % 08/27/2012 8:25:00 AM 128 mmHg 68 mmHg 68 bpm 18 rpm 97.7 F 128.5 lbs 66 in 20.7402 kg/m 1.6475 m 100 % 05/31/2012 8:35:00 AM 136 mmHg 68 mmHg 68 bpm 18 rpm 97.7 F 141 lbs 66 in 22.76 kg/m2 1.73 m2 03/25/2012 8:16:00 AM 138 mmHg 74 mmHg 74 bpm 18 rpm 99.5 F 131 lbs 03/15/2012 10:36:00 AM 122 mmHg 64 mmHg 68 bpm 18 rpm 97.1 F 126.437 lbs 03/12/2012 9:45:00 AM 120 mmHg 76 mmHg 70 bpm 16 rpm 97.5 F 127 lbs 66 in 20.4981 kg/m 1.6378 m 03/11/2012 2:18:00 PM 136 mmHg 72 mmHg 68 bpm 18 rpm 99.3 F 133.125 lbs 66 in 21.49 kg/m2 1.68 m2 08/21/2011 8:19:00 AM 112 mmHg 70 mmHg 80 bpm 16 rpm 97.7 F 133 lbs 66 in 21.4665 kg/m 1.6761 m 07/18/2011 9:56:00 AM 102 mmHg 68 mmHg 72 bpm 16 rpm 07/18/2011 8:30:00 AM 104 mmHg 60 mmHg 78 bpm 16 rpm 97.1 F 139 lbs 66 in 22.435 kg/m 1.7135 m 07/13/2011 8:12:00 AM 120 mmHg 72 mmHg 76 bpm 18 rpm 98.2 F 141 lbs 66 in 22.76 kg/m2 1.73 m2 06/28/2011 8:53:00 AM 135 mmHg 68 mmHg 66 bpm 18 rpm 96.5 F 137.375 lbs 66 in 22.1727 kg/m 1.7034 m 06/22/2011 8:33:00 AM 110 mmHg 62 mmHg 70 bpm 18 rpm 96.2 F 141 lbs 66 in 22.76 kg/m2 1.73 m2 100 % 06/05/2011 8:47:00 AM 100 mmHg 60 mmHg 77 bpm 97.3 F 136.375 lbs 99 % 05/18/2011 9:14:00 AM 122 mmHg 64 mmHg 72 bpm 05/18/2011 8:31:00 AM 102 mmHg 54 mmHg 78 bpm 18 rpm 97.4 F 136 lbs 66 in 21.9507 kg/m 1.6949 04/10/2011 8:36:00 AM 125 mmHg 82 mmHg [...] 136 lbs 66 in 21.9507 kg/m 1.6949 01/24/2011 10:26:00 AM 102 mmHg 78 mmHg [...] W/SCOPE Reviewed 01/24/2011 12:00 AM Toradol 60 Mg,[facility]#[id number] Katie Reviewed 01/24/2011 12:00 AM THER/PROPH/DIAG INJ SC/IM Reviewed 02/14/2011 12:00 AM RAPID Urine drug screen Reviewed 02/27/2011 12:00 AM Urine drug screen Reviewed 03/13/2011 12:00 AM Urine drug screen Reviewed 04/10/2011 12:00 AM RAPID Urine drug screen Reviewed 04/24/2011 12:00 AM RAPID Urine drug screen Reviewed 04/24/2011 12:00 AM THER/PROPH/DIAG INJ SC/IM Reviewed 04/24/2011 12:00 AM Toradol 15 Mg,[facility]#[id number] Reviewed 04/24/2011 12:00 AM Toradol 15 Mg,[facility]#[address]-02 ([place])-- gave 30 mg=1 ml Reviewed 05/08/2011 12:00 AM RAPID Urine drug screen Reviewed 05/18/2011 12:00 AM INJECT TRIGGER POINTS 3/> Reviewed 05/18/2011 12:00 AM HOT OR COLD PACKS THERAPY Reviewed 05/22/2011 12:00 AM RAPID Urine drug screen Reviewed 06/19/2011 12:00 AM OFFICE/OUTPATIENT VISIT EST Reviewed 06/22/2011 12:00 AM THER/PROPH/DIAG INJ SC/IM Reviewed 06/22/2011 12:00 AM Decadron 1 mg [facility][NOTE 3]#[id number] (Bette) Reviewed 06/22/2011 12:00 AM Depo-Medrol 80 mg [facility][NOTE 3]#[id number]-[id number] Reviewed 07/18/2011 12:00 AM INJECT TRIGGER POINTS [...] 03/11/2012 12:00 AM Decadron, Per 1 Mg [facility][NOTE 3]# [address]-77 Reviewed 03/11/2012 12:00 AM Depo-Medrol, Per 80 Mg [facility][NOTE 3]#0000-[address]-34 Reviewed 03/11/2012 12:00 AM Rocephin 500 Mg [facility][NOTE 3]#4480-9307-32 Reviewed 03/15/2012 12:00 AM COMPLETE CBC W/AUTO DIFF WBC Reviewed 03/15/2012 12:00 AM COMPREHEN METABOLIC PANEL Reviewed 03/15/2012 12:00 AM ASSAY OF LIPASE Reviewed 03/15/2012 12:00 AM X-RAY EXAM OF ABDOMEN Reviewed 05/31/2012 12:00 AM THER/PROPH/DIAG INJ SC/IM Reviewed 05/31/2012 12:00 AM Decadron, Per 1 Mg [facility][NOTE 3]# [address]-19 Reviewed 05/31/2012 12:00 AM Depo-Medrol, Per 80 Mg [facility][NOTE 3]#2937-9877-28 Reviewed 08/27/2012 12:00 AM CHEST X-RAY 2VW FRONTAL&LATL Reviewed 11/25/2012 12:00 AM Rapid Urine drug screen Reviewed 05/15/2013 12:00 AM THER/PROPH/DIAG INJ SC/IM Reviewed 05/15/2013 12:00 AM Decadron, Per 1 Mg [facility][NOTE 3]# [address]-69 Reviewed 05/15/2013 12:00 AM Depo-Medrol, Per 80 Mg [facility][NOTE 3]#3234-0486-21 Reviewed 05/15/2013 12:00 AM MRI LUMBAR SPINE W/DYE Reviewed 10/22/2013 12:00 AM ASSAY THYROID STIM HORMONE Reviewed 11/10/2013 12:00 AM LIPID PANEL Reviewed 11/10/2013 12:00 AM HIV-1 AG W/HIV-1 & HIV-2 AB Reviewed 11/10/2013 12:00 AM MAMMOGRAM BOTH BREASTS Reviewed 12/11/2013 12:00 AM THER/PROPH/DIAG INJ SC/IM Reviewed 12/11/2013 12:00 AM Toradol 15 Mg [facility][NOTE 3]#0782-4852-83 Reviewed 03/04/2014 12:00 AM COMPLETE CBC W/AUTO [...] screen Reviewed 09/19/2010 12:00 AM Toradol 15 Mg,[facility]#[address]-25 ([place])-- gave 30 mg=1 ml Reviewed 09/27/2010 12:00 [...] C Quantitation HCV Not Detected 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 11/17/2013 8:20 AM TRIGLYCERIDES 207.0 mg/dLCHOLESTEROL 249.0 [...] 8:02AM Anxiety Disorder Feb 27 2011 8:21AM [facility] medication use Jun 05 2011 8:48AM long [...] Lower abdominal pain Aug 17 2016 2:03PM Payers Insurance Name Company Name Plan Name Plan Number Policy Number Policy Group Number Start Date BCBS Bcbs [facility] [id number] N/A Aetna Aetna INVALID [id number] N/A Aetna Aetna [id number] Thursday, 2013 History of Encounters Visit Date Visit Type Provider 08/17/2016 Office visit Tori Staley APRN 08/01/2016 [...] 12/20/2011 Office visit [place] Sagastume DO 12/13/2011 [facility] [place] Sagastume DO 12/12/2011 Office visit [place] Tanika DO 08/21/2011 Office visit Lucinda Marquez MD 07/18/2011 Office visit Lucinda Marquez MD 07/13/2011 Office visit Johnathon Amos DO 06/28/2011 Office visit Tori Staley ASP NET MVC DEVELOPER 06/22/2011 Office visit Tori Staley ASP NET MVC DEVELOPER 06/19/2011 Nurse visit Lucinda Marquez MD 06/05/2011 Office visit Giovany Wilson MD 05/22/2011 Laboratory Giovany Wilson MD 05/18/2011 Office visit Lucinda Marquez MD 05/08/2011 Laboratory Giovany Wilson MD 04/24/2011 Nurse visit Lucinda Marquez MD 04/24/2011 Office visit Giovany Wilson MD 04/10/2011 Office visit Giovany Wilson MD 03/27/2011 Office visit Givoany Wilson MD 03/13/2011 Office visit Giovany Wilson [...]
--- OUTSIDE RECORDS SUMMARY | 2016-10-04 21:15 | XMS REPORT ---
Author Author Tori Staley Organization [facility] Address [address] [place], [place] [address] Care Team Providers Care Working Foreman Name Role Phone Tori Staley PCP Unavailable [...] W/SCOPE Reviewed 01/24/2011 12:00 AM Toradol 60 Mg,[facility]#[id number] Wilson Reviewed 01/24/2011 12:00 AM THER/PROPH/DIAG INJ SC/IM Reviewed 02/14/2011 12:00 AM RAPID Urine drug screen Reviewed 02/27/2011 12:00 AM Urine drug screen Reviewed 03/13/2011 12:00 AM Urine drug screen Reviewed 04/10/2011 12:00 AM RAPID Urine drug screen Reviewed 04/24/2011 12:00 AM RAPID Urine drug screen Reviewed 04/24/2011 12:00 AM THER/PROPH/DIAG INJ SC/IM Reviewed 04/24/2011 12:00 AM Toradol 15 Mg,[facility]#[id number] Reviewed 04/24/2011 12:00 AM Toradol 15 Mg,[facility]#[address]-37 ([place])-- gave 30 mg=1 ml Reviewed 05/08/2011 12:00 AM RAPID Urine drug screen Reviewed 05/18/2011 12:00 AM INJECT TRIGGER POINTS 3/> Reviewed 05/18/2011 12:00 AM HOT OR COLD PACKS THERAPY Reviewed 05/22/2011 12:00 AM RAPID Urine drug screen Reviewed 06/19/2011 12:00 AM OFFICE/OUTPATIENT VISIT EST Reviewed 06/22/2011 12:00 AM THER/PROPH/DIAG INJ SC/IM Reviewed 06/22/2011 12:00 AM Decadron 1 mg [facility]#[id number] (Bette) Reviewed 06/22/2011 12:00 AM Depo-Medrol 80 mg [facility]#[id number]-Ecbuakxm Reviewed 07/18/2011 12:00 AM INJECT TRIGGER POINTS [...] 03/11/2012 12:00 AM Decadron, Per 1 Mg [facility]# [address]-83 Reviewed 03/11/2012 12:00 AM Depo-Medrol, Per 80 Mg [facility]#2675-5588-41 Reviewed 03/11/2012 12:00 AM Rocephin 500 Mg [facility]#4836-7753-05 Reviewed 03/15/2012 12:00 AM COMPLETE CBC W/AUTO DIFF WBC Reviewed 03/15/2012 12:00 AM COMPREHEN METABOLIC PANEL Reviewed 03/15/2012 12:00 AM ASSAY OF LIPASE Reviewed 03/15/2012 12:00 AM X-RAY EXAM OF ABDOMEN Reviewed 05/31/2012 12:00 AM THER/PROPH/DIAG INJ SC/IM Reviewed 05/31/2012 12:00 AM Decadron, Per 1 Mg [facility]# [address]-23 Reviewed 05/31/2012 12:00 AM Depo-Medrol, Per 80 Mg [facility]#6106-6032-11 Reviewed 08/27/2012 12:00 AM CHEST X-RAY 2VW FRONTAL&LATL Reviewed 11/25/2012 12:00 AM Rapid Urine drug screen Reviewed 05/15/2013 12:00 AM THER/PROPH/DIAG INJ SC/IM Reviewed 05/15/2013 12:00 AM Decadron, Per 1 Mg [facility]# [address]-25 Reviewed 05/15/2013 12:00 AM Depo-Medrol, Per 80 Mg [facility]#4139-6905-71 Reviewed 05/15/2013 12:00 AM MRI LUMBAR SPINE W/DYE Reviewed 10/22/2013 12:00 AM ASSAY THYROID STIM HORMONE Reviewed 11/10/2013 12:00 AM LIPID PANEL Reviewed 11/10/2013 12:00 AM HIV-1 AG W/HIV-1 & HIV-2 AB Reviewed 11/10/2013 12:00 AM MAMMOGRAM BOTH BREASTS Reviewed 12/11/2013 12:00 AM THER/PROPH/DIAG INJ SC/IM Reviewed 12/11/2013 12:00 AM Toradol 15 Mg [facility]#7314-8144-14 Reviewed 03/04/2014 12:00 AM COMPLETE CBC W/AUTO [...] screen Reviewed 09/19/2010 12:00 AM Toradol 15 Mg,[facility]#[address]-41 ([place])-- gave 30 mg=1 ml Reviewed 09/27/2010 12:00 [...] C Quantitation HCV Not Detected 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
--- OUTSIDE RECORDS SUMMARY | 2016-10-04 21:18 | XMS REPORT ---
Author Author Tori Staley Organization [facility] Address [address] [place], [place] [address] Care Team Providers Care Floor Nurse Name Role Phone Tori Staley PCP Unavailable [...] W/SCOPE Reviewed 01/24/2011 12:00 AM Toradol 60 Mg,[facility]#[id number] Katie Reviewed 01/24/2011 12:00 AM THER/PROPH/DIAG INJ SC/IM Reviewed 02/14/2011 12:00 AM RAPID Urine drug screen Reviewed 02/27/2011 12:00 AM Urine drug screen Reviewed 03/13/2011 12:00 AM Urine drug screen Reviewed 04/10/2011 12:00 AM RAPID Urine drug screen Reviewed 04/24/2011 12:00 AM RAPID Urine drug screen Reviewed 04/24/2011 12:00 AM THER/PROPH/DIAG INJ SC/IM Reviewed 04/24/2011 12:00 AM Toradol 15 Mg,[facility]#[id number] Reviewed 04/24/2011 12:00 AM Toradol 15 Mg,[facility]#[address]-76 ([place])-- gave 30 mg=1 ml Reviewed 05/08/2011 12:00 AM RAPID Urine drug screen Reviewed 05/18/2011 12:00 AM INJECT TRIGGER POINTS 3/> Reviewed 05/18/2011 12:00 AM HOT OR COLD PACKS THERAPY Reviewed 05/22/2011 12:00 AM RAPID Urine drug screen Reviewed 06/19/2011 12:00 AM OFFICE/OUTPATIENT VISIT EST Reviewed 06/22/2011 12:00 AM THER/PROPH/DIAG INJ SC/IM Reviewed 06/22/2011 12:00 AM Decadron [address] [facility]#[id number] (Bette) Reviewed 06/22/2011 12:00 AM Depo-Medrol [address] [facility]#[id number]-Gwscmfjm Reviewed 07/18/2011 12:00 AM INJECT TRIGGER POINTS [...] 03/11/2012 12:00 AM Decadron, Per [address] [facility]# [address]-13 Reviewed 03/11/2012 12:00 AM Depo-Medrol, Per [address] [facility]#5313-6854-84 Reviewed 03/11/2012 12:00 AM Rocephin [address] [facility]#1020-9130-41 Reviewed 03/15/2012 12:00 AM COMPLETE CBC W/AUTO DIFF WBC Reviewed 03/15/2012 12:00 AM COMPREHEN METABOLIC PANEL Reviewed 03/15/2012 12:00 AM ASSAY OF LIPASE Reviewed 03/15/2012 12:00 AM X-RAY EXAM OF ABDOMEN Reviewed 05/31/2012 12:00 AM THER/PROPH/DIAG INJ SC/IM Reviewed 05/31/2012 12:00 AM Decadron, Per [address] [facility]# [address]-38 Reviewed 05/31/2012 12:00 AM Depo-Medrol, Per [address] [facility]#6142-4504-89 Reviewed 08/27/2012 12:00 AM CHEST X-RAY 2VW FRONTAL&LATL Reviewed 11/25/2012 12:00 AM Rapid Urine drug screen Reviewed 05/15/2013 12:00 AM THER/PROPH/DIAG INJ SC/IM Reviewed 05/15/2013 12:00 AM Decadron, Per [address] [facility]# [address]-95 Reviewed 05/15/2013 12:00 AM Depo-Medrol, Per [address] [facility]#6753-7174-84 Reviewed 05/15/2013 12:00 AM MRI LUMBAR SPINE W/DYE Reviewed 10/22/2013 12:00 AM ASSAY THYROID STIM HORMONE Reviewed 11/10/2013 12:00 AM LIPID PANEL Reviewed 11/10/2013 12:00 AM HIV-1 AG W/HIV-1 & HIV-2 AB Reviewed 11/10/2013 12:00 AM MAMMOGRAM BOTH BREASTS Reviewed 12/11/2013 12:00 AM THER/PROPH/DIAG INJ SC/IM Reviewed 12/11/2013 12:00 AM Toradol [address] 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
--- OUTSIDE RECORDS SUMMARY | 2016-10-04 21:20 | XMS REPORT ---
Author Author Tori Staley Organization [facility] Address [address] [place], [place] [address] Care Team Providers Care Shellfish Sorter Name Role Phone Tori Staley PCP Unavailable [...] tablet (150 mg) by oral route once metronidazole 0.75 % vaginal gel 08/29/2016 09/03/2016 insert 1 applicatorful (37.5 mg) by vaginal route once daily at bedtime for 5 days ProAir HFA 90 mcg/actuation inhalation HFA aerosol [...] 2 times per day for 7 days Discontinued Name Start Date [...] Active 10/23/2013 Vital Signs Date Time BP-Sys(mm[Hg] BP-[place](mm[Hg]) HR(bpm) RR(rpm) Temp WT HT HC BMI [...] 01/24/2011 12:00 AM Toradol 60 Mg,[facility]#[id number] Katie Reviewed 01/24/2011 12:00 AM THER/PROPH/DIAG INJ SC/IM Reviewed 02/14/2011 12:00 AM RAPID Urine drug screen Reviewed 02/27/2011 12:00 AM Urine drug screen Reviewed 03/13/2011 12:00 AM Urine drug screen Reviewed 04/10/2011 12:00 AM RAPID Urine drug screen Reviewed 04/24/2011 12:00 AM RAPID Urine drug screen Reviewed 04/24/2011 12:00 AM THER/PROPH/DIAG INJ SC/IM Reviewed 04/24/2011 12:00 AM Toradol 15 Mg,[facility]#0409-075600 Reviewed 04/24/2011 12:00 AM Toradol 15 Mg,[facility]#[address]-93 ([place])-- gave 30 mg=1 ml Reviewed 05/08/2011 12:00 AM RAPID Urine drug screen Reviewed 05/18/2011 12:00 AM INJECT TRIGGER POINTS 3/> Reviewed 05/18/2011 12:00 AM HOT OR COLD PACKS THERAPY Reviewed 05/22/2011 12:00 AM RAPID Urine drug screen Reviewed 06/19/2011 12:00 AM OFFICE/OUTPATIENT VISIT EST Reviewed 06/22/2011 12:00 AM THER/PROPH/DIAG INJ SC/IM Reviewed 06/22/2011 12:00 AM Decadron 1 mg [facility][NOTE 2]#[id number] (Bette) Reviewed 06/22/2011 12:00 AM Depo-Medrol 80 mg [facility][NOTE 2]#[id number]-Vvhiizzc Reviewed 07/18/2011 12:00 AM INJECT TRIGGER POINTS [...] 08/17/2016 12:00 AM URINALYSIS AUTO W/SCOPE Returned 08/17/2016 12:00 AM RADEX ABDOMEN COMPL W/DCBTS&/ERC VIEWS Returned 08/21/2016 12:00 AM CYTOPATH C/V THIN LAYER Returned 03/11/2012 12:00 AM THER/PROPH/DIAG INJ SC/IM Reviewed 03/11/2012 12:00 AM Decadron, Per 1 Mg [facility][NOTE 2]# [address]-26 Reviewed 03/11/2012 12:00 AM Depo-Medrol, Per 80 Mg [facility][NOTE 2]#0932-2763-36 Reviewed 03/11/2012 12:00 AM Rocephin 500 Mg [facility][NOTE 2]#4625-5236-76 Reviewed 03/15/2012 12:00 AM COMPLETE CBC W/AUTO DIFF WBC Reviewed 03/15/2012 12:00 AM COMPREHEN METABOLIC PANEL Reviewed 03/15/2012 12:00 AM ASSAY OF LIPASE Reviewed 03/15/2012 12:00 AM X-RAY EXAM OF ABDOMEN Reviewed 05/31/2012 12:00 AM THER/PROPH/DIAG INJ SC/IM Reviewed 05/31/2012 12:00 AM Decadron, Per 1 Mg [facility][NOTE 2]# [address]-32 Reviewed 05/31/2012 12:00 AM Depo-Medrol, Per 80 Mg [facility][NOTE 2]#9212-5855-58 Reviewed 08/27/2012 12:00 AM CHEST X-RAY 2VW FRONTAL&LATL Reviewed 11/25/2012 12:00 AM Rapid Urine drug screen Reviewed 05/15/2013 12:00 AM THER/PROPH/DIAG INJ SC/IM Reviewed 05/15/2013 12:00 AM Decadron, Per 1 Mg [facility][NOTE 2]# [address]-51 Reviewed 05/15/2013 12:00 AM Depo-Medrol, Per 80 Mg [facility][NOTE 2]#6392-2576-06 Reviewed 05/15/2013 12:00 AM MRI LUMBAR SPINE W/DYE Reviewed 10/22/2013 12:00 AM ASSAY THYROID STIM HORMONE Reviewed 11/10/2013 12:00 AM LIPID PANEL Reviewed 11/10/2013 12:00 AM HIV-1 AG W/HIV-1 & HIV-2 AB Reviewed 11/10/2013 12:00 AM MAMMOGRAM BOTH BREASTS Reviewed 12/11/2013 12:00 AM THER/PROPH/DIAG INJ SC/IM Reviewed 12/11/2013 12:00 AM Toradol 15 Mg [facility][NOTE 2]#1085-2153-46 Reviewed 03/04/2014 12:00 AM COMPLETE CBC W/AUTO [...] 09/19/2010 12:00 AM Toradol 15 Mg,[facility]#[address]-48 ([place])-- gave 30 mg=1 ml Reviewed 09/27/2010 12:00 [...] C Quantitation HCV Not Detected HCV log10 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 11/17/2013 8:20 AM TRIGLYCERIDES 207.0 mg/dLCHOLESTEROL 249.0 [...] 8:02AM Anxiety Disorder Feb 27 2011 8:21AM manager terminal medication use Jun 05 2011 8:48AM skilled nursing medication use Mar 27 2011 8:49AM Lumbar [...] Group Number Start Date BCBS [employer] [place] [id number] N/A Aetna Aetna INVALID [id number] N/A Aetna Aetna [id number] Thursday, 2013 History of Encounters Visit Date Visit Type Provider 08/21/2016 Office visit Tori Staley APRN 08/17/2016 Office visit Tori Staley HR SPECIALIST 08/01/2016 Office visit Tori Staley HR SPECIALIST 12/11/2013 Office visit Lucinda Marquez MD 12/08/2013 Office visit Fay Nur APRN 11/10/2013 Office visit 11/10/2013 Office visit Tori Staley APRN 10/22/2013 Office visit Tori Staley HR SPECIALIST 09/23/2013 Office visit [place] Sagastume DO 09/04/2013 Office visit Lucinda Marquez MD 07/25/2013 Office visit [place] Sagastume DO 06/13/2013 Office visit Tori Staley HR SPECIALIST 05/27/2013 Office visit Tori Staley HR SPECIALIST 05/15/2013 Office visit Tori Staley HR SPECIALIST 11/25/2012 Office visit Tori Staley APRN 08/27/2012 Office visit Tori Staley APRN 05/31/2012 Office visit Tori Staley HR SPECIALIST 03/25/2012 Office visit Tori Staley HR SPECIALIST 03/15/2012 Office visit Tori Staley HR SPECIALIST 03/12/2012 Office visit Johnathon Amos DO 03/11/2012 Office visit Tori Staley APRN 12/20/2011 Office visit [place] Sagastume DO 12/13/2011 [facility] [place] Sagastume DO 12/12/2011 [...]
--- OUTSIDE RECORDS SUMMARY | 2016-10-04 21:22 | XMS REPORT ---
Author Author Tori Staley Organization [facility] Address [address] [place], [place] [id number] Care Team Providers Care [employer]ed [employer] Boards Pinner Name Role Phone Tori Staley PCP Unavailable [...] by oral route once metronidazole 0.75 % topical gel 08/28/2016 09/02/2016 apply to affected area( s) by topical route daily for 5 days Name Start Date Expiration Date SIG [...] W/SCOPE Reviewed 01/24/2011 12:00 AM Toradol 60 Mg,[facility]#[id number] Katie Reviewed 01/24/2011 12:00 AM THER/PROPH/DIAG INJ SC/IM Reviewed 02/14/2011 12:00 AM RAPID Urine drug screen Reviewed 02/27/2011 12:00 AM Urine drug screen Reviewed 03/13/2011 12:00 AM Urine drug screen Reviewed 04/10/2011 12:00 AM RAPID Urine drug screen Reviewed 04/24/2011 12:00 AM RAPID Urine drug screen Reviewed 04/24/2011 12:00 AM THER/PROPH/DIAG INJ SC/IM Reviewed 04/24/2011 12:00 AM Toradol 15 Mg,[facility]#[id number] Reviewed 04/24/2011 12:00 AM Toradol 15 Mg,[facility]#[id number] ([place])-- gave 30 mg=1 ml Reviewed 05/08/2011 12:00 AM RAPID Urine drug screen Reviewed 05/18/2011 12:00 AM INJECT TRIGGER POINTS 3/> Reviewed 05/18/2011 12:00 AM HOT OR COLD PACKS THERAPY Reviewed 05/22/2011 12:00 AM RAPID Urine drug screen Reviewed 06/19/2011 12:00 AM OFFICE/OUTPATIENT VISIT EST Reviewed 06/22/2011 12:00 AM THER/PROPH/DIAG INJ SC/IM Reviewed 06/22/2011 12:00 AM Decadron 1 mg [place]#[id number] ([place]) Reviewed 06/22/2011 12:00 AM Depo-Medrol 80 mg [facility]#[id number] Reviewed 07/18/2011 12:00 AM INJECT TRIGGER POINTS [...] 03/11/2012 12:00 AM Decadron, Per 1 Mg [facility]# [id number] Reviewed 03/11/2012 12:00 AM Depo-Medrol, Per 80 Mg [facility]#[id number] Reviewed 03/11/2012 12:00 AM Rocephin 500 Mg [facility]#[id number] Reviewed 03/15/2012 12:00 AM COMPLETE CBC W/AUTO DIFF WBC Reviewed 03/15/2012 12:00 AM COMPREHEN METABOLIC PANEL Reviewed 03/15/2012 12:00 AM ASSAY OF LIPASE Reviewed 03/15/2012 12:00 AM X-RAY EXAM OF ABDOMEN Reviewed 05/31/2012 12:00 AM THER/PROPH/DIAG INJ SC/IM Reviewed 05/31/2012 12:00 AM Decadron, Per 1 Mg [facility]# [id number] Reviewed 05/31/2012 12:00 AM Depo-Medrol, Per 80 Mg [facility]#[id number] Reviewed 08/27/2012 12:00 AM CHEST X-RAY 2VW FRONTAL&LATL Reviewed 11/25/2012 12:00 AM Rapid Urine drug screen Reviewed 05/15/2013 12:00 AM THER/PROPH/DIAG INJ SC/IM Reviewed 05/15/2013 12:00 AM Decadron, Per 1 Mg [facility]# [id number] Reviewed 05/15/2013 12:00 AM Depo-Medrol, Per 80 Mg [facility]#[id number] Reviewed 05/15/2013 12:00 AM MRI LUMBAR SPINE W/DYE Reviewed 10/22/2013 12:00 AM ASSAY THYROID STIM HORMONE Reviewed 11/10/2013 12:00 AM LIPID PANEL Reviewed 11/10/2013 12:00 AM HIV-1 AG W/HIV-1 & HIV-2 AB Reviewed 11/10/2013 12:00 AM MAMMOGRAM BOTH BREASTS Reviewed 12/11/2013 12:00 AM THER/PROPH/DIAG INJ SC/IM Reviewed 12/11/2013 12:00 AM Toradol 15 Mg [facility]#[id number] Reviewed 03/04/2014 12:00 AM COMPLETE CBC W/AUTO [...] screen Reviewed 09/19/2010 12:00 AM Toradol 15 Mg,[facility]#[id number] ([place])-- gave 30 mg=1 ml Reviewed 09/27/2010 12:00 [...] C Quantitation HCV Not Detected 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 11/17/2013 8:20 AM TRIGLYCERIDES 207.0 mg/dLCHOLESTEROL 249.0 [...] 8:02AM Anxiety Disorder 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 27 2011 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 Mar 27 2011 8:49AM Lumbar [...] Group Number Start Date BCBS [employer] [place] [id number] N/A Aetna Aetna INVALID [id number] N/A A[employer] Aetna [id number] Thursday, 2013 History of Encounters Visit Date Visit Type Provider 08/21/2016 Office visit Tori Staley [employer]IE[employer]NT 08/17/2016 Office visit Tori Staley [employer]IE[employer] 08/01/2016 Office visit Tori Staley [employer]IE[employer]ENANT 12/11/2013 Office visit Lucinda Marquez MD 12/08/2013 Office visit Fay Nur [employer] 11/10/2013 Office visit 11/10/2013 Office visit Tori Staley [employer] 10/22/2013 Office visit Tori Staley [employer]IE[employer] 09/23/2013 Office visit Raleigh Sagastume DO 09/04/2013 Office visit Lucinda Marquez MD 07/25/2013 Office visit [place] Sagastume DO 06/13/2013 Office visit Tori Staley [employer] 05/27/2013 Office visit Tori Staley POLICE [employer]IE[employer]ENANT 05/15/2013 Office visit Tori Staley POL[employer]IE[employer] 11/25/2012 Office visit Tori Staley POL[employer]IE[employer]ENA[employer] 08/27/2012 Office visit Tori Staley POL[employer]IE[employer] 05/31/2012 Office visit Tori Staley [employer] 03/25/2012 Office visit Tori Staley [employer] 03/15/2012 Office visit Tori Staley [employer] 03/12/2012 Office visit Johnathon Amos DO 03/11/2012 Office visit Tori Staley [employer] 12/20/2011 Office visit Raleigh Sagastume DO 12/13/2011 [facility] [place] Sagastume DO 12/12/2011 Office visit Raleigh Sagastume DO 08/21/2011 Office visit Lucinda Marquez MD 07/18/2011 Office visit Lucinda Marquez MD 07/13/2011 Office visit Johnathon Amos DO 06/28/2011 Office visit Tori Staley [employer] 06/22/2011 Office visit Tori Staley [employer] 06/19/2011 Nurse visit Lucinda Marquez MD 06/05/2011 [...] 11/07/2010 Voided Lucinda Marquez MD 10/31/2010 Laboratory Giovnay Wilson MD 10/24/2010 Office visit Lucinda Marquez [...]
--- OUTSIDE RECORDS SUMMARY | 2016-10-04 21:22 | XMS REPORT | Continuity of Care Document ---
Author Author [facility] Organization [facility] Address Unknown Phone Unavailable Allergies Medications Problems Procedures Results Encounters ACCT No. Visit Date/Time Discharge Status Pt. Type Provider Facility Loc./Unit Complaint [id number] 10/14/2013 09:23:00 2013 13:05:00 DIS Inpatient [id number] 08/21/2016 11:38:20 08/21/2016 23: 59:59 CLS Outpatient Tori Staley [id number] 08/17/2016 14:53:54 08/17/2016 23: 59:59 CLS Outpatient Tori Staley [id number] 08/01/2016 11:12:44 08/01/2016 23: 59:59 CLS Outpatient Tori Staley [id number] 12/11/2013 09:59:23 12/11/2013 23: 59:59 CLS Outpatient Lucinda Marquez [id number] 12/08/2013 14:57:45 12/08/2013 23: 59:59 CLS Outpatient Fay Nur [id number] 11/10/2013 11:41:23 11/10/2013 23: 59:59 CLS Outpatient Tori Staley [id number] 10/22/2013 11:32:49 10/22/2013 23: 59:59 CLS Outpatient Tori Staley [id number] 09/23/2013 10:16:22 09/23/2013 23: 59:59 CLS Outpatient Raleigh Sagastume [id number] 09/04/2013 09:39:00 09/04/2013 23: 59:59 CLS Outpatient Lucinda Marquez [id number] 07/25/2013 15:46:51 07/25/2013 23: 59:59 CLS Outpatient Raleigh Sagastume [id number] 06/13/2013 09:06:41 06/13/2013 23: 59:59 CLS Outpatient Tori Staley [id number] 05/27/2013 10:09:08 05/27/2013 23: 59:59 CLS Outpatient Tori Staley [id number] 05/15/2013 10:55:55 05/15/2013 23: 59:59 CLS Outpatient Tori Staley
[2016-10-04] MEDS ORDERED: KETOROLAC 60 MG/2 ML VIAL IM STA (21:58)
--- NOTE | 2016-10-04 22:00 | ED Back Pain ---
General Chief Complaint: Back Problems Stated Complaint: BACK PAIN Nursing Triage Note: PT REPORTS CHRONIC BACK PAIN THAT HAS GOTTEN WORSE THIS MONTH. PT REPORTS NUMBNESS DOWN L LEG AND IN HER R HIP. PT REPORTS SHE WAS SEEN IN [place] [facility] A MONTH AGO AND TOLD SHE HAD SCIATICA. Nursing Sepsis Screen: No Definite Risk Source of Information: Patient Exam Limitations: No Limitations History of Present Illness Time Seen by Provider: 22:00 Initial Comments 41-year-old female patient presents to the emergency department complaints of chronic low back pain which has progressively gotten worse over the last 2-3 weeks. Patient denies any known injury recently. Now complains of increased numbness down the left lower extremity and pain into the right buttock. Patient states she was seen at [facility] emergency department one month ago while she was in treatment and was diagnosed with sciatica. Denies any radiographs or CT scans being done. Denies bowel or bladder incontinence. Patient has a h/o lumbar surgery x2 at [address] Patient is noted to be moving around on the bed without difficulty. Pulling her feet up to scratch her left foot without difficulty. Location: Lumbar Spine, Paraspinous Muscles Timing/Duration: Other (chronic pain worse over the last 2-3 months) Pain/Injury Location: Back Radiation: Other (see history of present illness) Method of Injury: Unknown (denies known recent injury) Modifying Factors: Worse With Movement Allergies and Home Medications Allergies Coded Allergies: Sulfa (Sulfonamide Antibiotics) (Unverified Allergy, Unknown, 10/13/13) Penicillins (Unverified Adverse Reaction, Mild, headache, 10/13/13) Home Medications Albuterol Sulfate 8 Gm Hfa.aer.ad, 1 PUFF INH Q6H PRN for SHORTNESS OF BREATH, ( Reported) Alprazolam 1 Mg Tablet, 1 MG PO TID PRN for ANXIETY, (Reported) Alprazolam 1 Mg Tablet, 1 MG PO TID, #90 Prescribed by: JUDIT PRASAD on 10/15/13 1220 Clindamycin Hcl 300 Mg Capsule, 300 MG PO Q6H, #56 Prescribed by: SAJI CAMARGO on 10/15/13 0943 Cyclobenzaprine Hcl 10 Mg Tablet, 10 MG PO Q8H PRN for SPASMS, (Reported) Estrogens Conjugated 1.25 Mg Tab, 1.25 MG PO DAILY, (Reported) Fluticasone Propionate 12 Gm Aer.w.adap, 1 PUFF INH BID, (Reported) Hydrocodone Bit/Acetaminophen 1 Each Tablet, 1-2 EACH PO Q4H, #90 Ref 0 Prescribed by: SAJI CAMARGO on 10/15/13 0945 Quetiapine Fumarate 100 Mg Tablet, 100 MG PO HS, (Reported) Topiramate 50 Mg Tablet, 100 MG PO BID PRN for MIGRAINE, (Reported) TAKE 2 (50MG) TABLET Constitutional: No chills, No dizziness, No fever, No malaise Respiratory: no symptoms reported Cardiovascular: no symptoms reported Gastrointestinal: abdominal pain (RLQ and suprapubic), No constipation, No diarrhea, nausea, No vomiting Genitourinary: No decreased output, No discharge, No dysuria, frequency, No hematuria, No pain Musculoskeletal: see HPI, back pain, joint pain, muscle pain Skin: no symptoms reported Psychiatric/Neurological: See HPI, Denies Headache, Numbness, Denies Weakness All Other Systems Reviewed Negative Unless Noted: Yes (Negative excepted noted.) Past Hzdskau-Wcdrag-Aefnyn Hx Patient Social History Alcohol Use: Denies Use Recreational Drug Use: No Drug of Choice: CLEAN 34 DAYS, METH MARIJUANA Smoking Status: Current Everyday Smoker Type Used: Cigarettes Recent Foreign Travel: No Contact w/Someone Who Travel: No Recent Infectious Disease Expo: No Physical Abuse: No Sexual Abuse: No Mistreated: No Immunizations Up To Date Tetanus Booster (TDap): Unknown Date of Pneumonia Vaccine: Dec 13, 2008 Seasonal Allergies Seasonal Allergies: No Surgeries History of Surgeries: Yes (BACK SX x2) Surgeries: Hysterectomy, Orthopedic Respiratory History of Respiratory Disorde: Yes Respiratory Disorders: Asthma Cardiovascular History of Cardiac Disorders: No Neurological History of Neurological Disord: Yes (PSEUDO SEIZURES) Reproductive System Hx Reproductive Disorders: No Sexually Transmitted Disease: No HIV/AIDS: No Female Reproductive Disorders: Endometriosis 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 Genitourinary History of Genitourinary Disor: No Gastrointestinal History of Gastrointestinal Di: No Musculoskeletal History of Musculoskeletal Dis: Yes (CARPELTUNNEL BILAT WRISTS) Musculoskeletal Disorders: Chronic Back Pain Endocrine History of Endocrine Disorders: No HEENT History of HEENT Disorders: No Cancer History of Cancer: No Psychosocial History of Psychiatric Problem: Yes Behavioral Health Disorders: Anxiety, Bipolar, Personality Disorder, Depression Suicide Risk Score: 0 Integumentary History of Skin or Integumenta: No Blood Transfusions History of Blood Disorders: No Reviewed Nursing Assessment Reviewed/Agree w Nursing PMH: Yes Family Medical History Significant Family History: No Pertinent Family Hx Family Medial History: Completed stroke 19 MOTHER (PATIENT STATES, "SHE'S HAD A COUPLE OF STROKES") Myocardial infarction 19 MOTHER Psychosocial problem 19 MOTHER Respiratory disorder 19 MOTHER (COPD) Physical Exam Vital Signs Vital Sign - Last 12Hours 10/04/16 20:58 Temp 97.5 Pulse 88 Resp 20 B/P (MAP) 137/102 Pulse Ox 100 Capillary Refill : Less Than 3 Seconds General Appearance: No Apparent Distress, WD/WN, Other (patient is constantly fidgeting. Moves about the bed without difficulty. Patient is able to sit up as well as pull her left foot up to scratch it without difficulty.) HEENT: PERRL/EOMI, Pharynx Normal Neck: Full Range of Motion, Normal Inspection, Non Tender, Supple Cardiovascular: Regular Rate, Rhythm, No Edema, No Murmur, Normal Peripheral Pulses Respiratory: Lungs Clear, Normal Breath Sounds, No Accessory Muscle Use, No Respiratory Distress Peripheral Pulses: 2+ Dorsalis Pedis (R), 2+ Left Dors-Pedis (L), 2+ Radial Pulses (R), 2+ Radial Pulses (L) Gastrointestinal: Normal Bowel Sounds, No Organomegaly, No Pulsatile Mass, Soft , No Distended, No Guarding, No Rebound, Tenderness (mild RLQ and suprapubic tenderness.) Back: Normal Inspection, No CVA Tenderness, No Decreased Range of Motion, Muscle Spasm, Other (no grimacing or pain response with palpation of the back ( patient is sitting up on the bed bent over scratching her foot due to "an insect bite". Once she is done scratching her foot she states "it hurt here and here" as she points to the left SI joint and left buttock. well healed surgical scar of the lumbar region consistent with PSH.) Extremity: Normal Capillary Refill, Normal Inspection, Normal Range of Motion, No Calf Tenderness, No Pedal Edema, Pelvis Stable, Other (bilateral buttocks TTP ) Neurologic/Psychiatric: Alert, Oriented x3, Sensory Deficit (left foot and left lateral lower leg), Other (patient is difficult to keep focused. flight of ideas. ) Skin: Normal Color, Warm/Dry Progress/Results/Core Measures Results/Orders Lab Results Laboratory Tests Test 8/23/17 21:58 Range/Units Urine Color YELLOW Urine Clarity CLEAR Urine pH 6.5 5-9 Urine Specific [place] 1.015 L 1.016-1.022 Urine Protein NEGATIVE NEGATIVE Urine Glucose (UA) NEGATIVE NEGATIVE Urine Ketones NEGATIVE NEGATIVE Urine Nitrite NEGATIVE NEGATIVE Urine Bilirubin NEGATIVE NEGATIVE Urine Urobilinogen NORMAL NORMAL MG/DL Urine Leukocyte Esterase 1+ H NEGATIVE Urine RBC (Auto) 1+ H NEGATIVE Urine RBC 0-2 /HPF Urine WBC 0-2 /HPF Urine Squamous Epithelial Cells 2-5 /HPF Urine Crystals NONE /LPF Urine Bacteria TRACE /HPF Urine Casts NONE /LPF Urine Mucus NEGATIVE /LPF Urine Culture Indicated NO My Orders Orders - JENELLE PATTERSON Ua Culture If Indicated (10/04/16 21:58) Ct Lumbar Spine Wo (10/04/16 21:58) Ketorolac Injection (Toradol Injection) (10/04/16 21:58) Vital Signs/I&O Vital Sign - Last 12Hours 10/04/16 20:58 Temp 97.5 Pulse 88 Resp 20 B/P (MAP) 137/102 Pulse Ox 100 Blood Pressure Mean: 114 Diagnostic Imaging Diagonstic Imaging: CT Plain Films/CT/US/NM/MRI: other (lumbar spine) Reviewed: Reviewed by Me (radiology report reviewed by me) Departure Impression Impression: Primary Impression: Lumbar radiculopathy Disposition: 01 HOME, SELF-CARE Condition: Improved Departure-Patient Inst. Decision time for Depature: 23:00 Referrals: NO,LOCAL PHYSICIAN (PCP) Primary Care Physician ELENA EASLEY BRIAN J MD Patient Instructions: Radiculopathy (DC) Add. Discharge Instructions: All discharge instructions reviewed with patient and/or family. Voiced understanding. Medications as instructed. Tylenol Extra Strength over-the- counter as directed for pain. Ice pack or heating pad as needed for pain. No heavy lifting, pushing, pulling, twisting, bending, climbing 7 days. Follow- up with your primary care physician and/or the family development extension specialist of your choice for recheck and further management. Call tomorrow morning for appointment time. Return to the emergency department for worsened pain, numbness, weakness , bowel incontinence, bladder incontinence, abdominal pain, inability to urinate , numbness of the genitals, or any other concerns. Scripts Diclofenac Sod (Diclofenac Sodium ER) 100 Mg Tab 100 MG PO BID Y for pain, #20 TAB 0 Refills Prov: JENELLE PATTERSON 10/04/16 Prednisone (Prednisone) 20 Mg Tab 40 MG PO DAILY, #10 TAB 0 Refills Prov: JENELLE PATTERSON 10/04/16 JENELLE PATTERSON Oct 04, 2016 22:00
[2016-10-04 22:08] LABS: BILIRUBIN,URINE NEGATIVE (NEGATIVE); KETONES,URINE NEGATIVE (NEGATIVE); LEUKOCYTE ESTERASE ,URINE 1+ (NEGATIVE); NITRITE,URINE NEGATIVE (NEGATIVE); PH,URINE 6.5 (5-9); PROTEIN,URINE NEGATIVE (NEGATIVE); UROBILINOGEN,URINE NORMAL (NORMAL)
[2016-10-04 22:16] LABS: WBC,URINE 0-2 /HPF
[2016-10-04] MEDS ORDERED: NF-DICLOTA PO (23:02)
[2016-10-04] MEDS ORDERED: PRD20T PO (23:02)
[2016-10-04 23:15] VITALS: BP 125/92
--- NOTE | 2016-10-05 07:47 | Diagnostic Imaging Report ---
PROCEDURE: CT lumbar spine without contrast. TECHNIQUE: Multiple contiguous axial images were obtained through the lumbar spine without the use of intravenous contrast. Sagittal and coronal reformations were then performed. INDICATION: Chronic back pain. COMPARISON: None available. FINDINGS: Chronic pars defect on the right at L5. No left-sided pars defect. No spondylolisthesis. No additional fracture. No malalignment of the lumbar spine. Intervertebral disc space heights are preserved with exception of mild disc space narrowing at L4-L5 and L5-S1. No evidence of significant spinal stenosis or foraminal narrowing by CT. Visualized aspects of the retroperitoneum appears normal. Cholecystectomy is noted. SI joints are normal. No sacral insufficiency fracture. IMPRESSION: 1. Chronic right-sided pars defect at L5 without spondylolisthesis. 2. No additional fracture. 3. Mild degenerative disc disease in the lower lumbar spine without significant spinal stenosis or foraminal narrowing by CT. 4. Findings are in agreement with the preliminary report. Dictated by: Dictated on workstation # [id number]
== END 2016-10-04 23:15 | disposition home or self-care (01) ==
LOC: EDUNIT# 20:51 → ER 20:53
DX: M54.16 Radiculopathy, lumbar region (principal); F31.9 Bipolar disorder, unspecified; F41.9 Anxiety disorder, unspecified; F60.9 Personality disorder, unspecified; J45.909 Unspecified asthma, uncomplicated; G40.909 Epilepsy, unspecified, not intractable, without status epilepticus; F17.210 Nicotine dependence, cigarettes, uncomplicated; Z90.710 Acquired absence of both cervix and uterus; Z98.890 Other specified postprocedural states
CPT/HCPCS: 72131; 81000; 96372; 99284

== ENCOUNTER → 2016-10-20 | Outpatient (CLI) | payer SELFPAY ==
[~2016-10-20] MED LIST changes: +DICL100T3 PO; +PRD20T PO
--- NOTE | 2016-10-20 17:36 | Diagnostic Imaging Report ---
CLINICAL INDICATION: Patient with no known injury. Patient has low back pain with bilateral leg pain and numbness x2 months. Patient has history of lumbar surgery on 09/25/2013 and 10/13/2013. EXAM: MRI of the lumbar spine performed without IV contrast. Sequences include sagittal T2, sagittal T1, sagittal T2 fat-sat, and axial T2. COMPARISON: CT scan of the lumbar spine without contrast dated 10/04/2016. FINDINGS: Chronic right L5 spondylolysis is again seen with no significant listhesis. Otherwise, there is no evidence of acute lumbar spine fracture or dislocation. The lumbar vertebral signal is within normal limits. There is a chronic Schmorl's node involving the upper endplate of the T12 vertebral body. The visualized distal thoracic spinal cord, conus medullaris, and cauda equina nerve roots are unremarkable. The conus medullaris tip is seen at the upper L1 vertebral body level. There is no significant paraspinal soft tissue abnormality. L1-L2: There is a small central posterior disc protrusion/herniation which causes qcyx-md-kbkakvof central canal narrowing. There is no significant neural foramen narrowing. L2-L3: Unremarkable. L3-L4: There is mild bilateral facet arthropathy and mild bilateral neural foramen narrowing. L4-L5: There is a diffuse disc bulge seen with small posterior disc protrusion/herniation with annular tear. There is mild loss of intervertebral disc height and low T2 degenerative disc signal changes. There is bilateral facet arthropathy. There is moderate central canal narrowing. There is severe bilateral neural foramen narrowing. L5-S1: There is a diffuse disc bulge with mild loss of intervertebral disc height and low T2 degenerative disc signal changes. There is a superimposed small left subarticular disc protrusion/herniation. There is concern for encroachment upon the non-exited left S1 nerve root. There is at least sqxo-yh-fydighhx bilateral neural foramen narrowing. There is no significant central canal narrowing. IMPRESSION: 1: There is a small L1-L2 posterior disc herniation which causes zqzr-vf-vgfloppx central canal narrowing. 2: There is a L5-S1 diffuse disc bulge with superimposed small left subarticular disc herniation with concern for encroachment upon the non-exited left S1 nerve root. There is vgse-kj-iuvcmvbi bilateral neural foramen narrowing. 3: There is a L4-L5 diffuse disc bulge with small posterior disc herniation and annular tear. There is moderate central canal narrowing and severe bilateral neural foramen narrowing. 4: Stable chronic right L5 spondylolysis with no significant listhesis. Dictated by: Dictated on workstation # [id number]
== END ==
LOC: RAD 16:20
PROVIDERS: ATTEND Orthopaedic Surgery
DX: M51.27 Other intervertebral disc displacement, lumbosacral region (principal); M48.06 Spinal stenosis, lumbar region; M43.16 Spondylolisthesis, lumbar region; M51.46 Schmorl's nodes, lumbar region
CPT/HCPCS: 72148